=== PATIENT | male | born 1970 | race American Indian/Alaskan Native ===

== ENCOUNTER 2018-11-05 13:49 | Inpatient (IN) | payer OTHER ==
--- NOTE | 2018-11-05 14:46 | ED PDOC ---
Arrival/HPI - General Chief Complaint: GI Problem Time Seen by Provider: 11/05/18 14:05 Historian: Patient - History of Present Illness Narrative History of Present Illness (Text): 11/05/18 14:43 48 M with PMh of acid reflux and hypertension presents with cc chest pain (nagging, local) w/ lightheadedness since yesterday. Patient denies chest pain radiating to back. Patient reports having a history of acid reflux and mentions the chest pain he's had from acid reflux feels different from the chest pain he is currently feeling. Patient denies any fevers, chills, headache, dizziness, shortness of breath, dyspnea on exertion, cough, diaphoresis, abdominal pain, nausea, vomiting, diarrhea, back pain, or any other complaint. Primary Care Provider: Dr. Joe Time/Duration: 24 hours Symptom Onset: Sudden Symptom Course: Unchanged Activities at Onset: Light Context: Home Past Medical History - Provider Review Nursing Documentation Reviewed: Yes - Infectious Disease Hx of Infectious Diseases: None - Cardiac Hx Cardiac Disorders: No - Pulmonary Hx Respiratory Disorders: No - Neurological Hx Neurological Disorder: No - HEENT Hx HEENT Disorder: No - Renal Hx Renal Disorder: No - Endocrine/Metabolic Hx Diabetes Mellitus Type 2: Yes - Hematological/Oncological Hx Blood Disorders: No - Integumentary Hx Dermatological Disorder: No - Musculoskeletal/Rheumatological Hx Musculoskeletal Disorders: No Hx Falls: No - Gastrointestinal Hx Gastrointestinal Disorders: No - Genitourinary/Gynecological Hx Genitourinary Disorders: No - Psychiatric Hx Psychophysiologic Disorder: No Hx Substance Use: No - Surgical History Other/Comment: left partial knee replacement, 2008 - Anesthesia Hx Anesthesia: No Hx Anesthesia Reactions: No - Suicidal Assessment Feels Threatened In Home Enviroment: No Family/Social History - Physician Review Nursing Documentation Reviewed: Yes Family/Social History: Unknown Family HX Smoking Status: Never Smoked Hx Alcohol Use: No Hx Substance Use: No Hx Substance Use Treatment: No Allergies/Home Meds Allergies/Adverse Reactions: Allergies No Known Allergies Allergy (Verified 09/06/15 15:14) Home Medications: Home Meds Medication Instructions Recorded Confirmed Losartan [Cozaar] 100 mg PO DAILY 11/05/18 11/05/18 MetFORMIN [glucOPHAGE] 500 mg PO BID 11/05/18 11/05/18 amLODIPine [Norvasc] 10 mg PO DAILY 11/05/18 11/05/18 Review of Systems - Physician Review All systems were reviewed & negative as marked: Yes - Review of Systems Constitutional: Normal Eyes: Normal ENT: Normal Respiratory: Normal. absent: SOB Cardiovascular: Chest Pain Gastrointestinal: Normal Genitourinary Male: Normal Musculoskeletal: Normal Skin: Normal Neurological: Other (light headness) Endocrine: Normal Hemo/Lymphatic: Normal Psychiatric: Normal Physical Exam - Physical Exam Narrative Physical Exam (Text): 11/05/18 14:45 Gen: VS reviewed, alert, well developed, well nourished, nontoxic, mild distress Eye: EOMI, PERRL ENT: normal pharynx. Neck: no JVD, supple, no adenopathy CV: Irregularly irregular heart rate, no rubs,no murmur, S1, S2 Pulm: no distress, clear to auscultation, no wheeze, no rhonchi, breath sounds equal, no rales Abd: soft, nontender, no guarding, no rebound, no rigidity Ext: no edema Skin: good color, no rash, no cyanosis Psych: responds appropriately to questions, normal affect Neuro: oriented x3, CN2-12 intact grossly, motor intact, sensation intact Vital Signs Temp Pulse Resp BP Pulse Ox 11/05/18 14:02 98.5 F 66 18 143/80 98 Medical Decision Making ED Course and Treatment: 11/05/18 14:46 Impression: 48 M presents with cc chest pain (nagging, local) w/ lightheadedness since yesterday Plan: -- Labs -- Chlamydia/ GC -- Reassess and disposition Prior Visits: Notes and results from previous visits were reviewed. Progress Notes: 11/05/18 14:[address] scott. recommends beta blockade assuming no acute electrolyte or acs disturbance. 11/05/18 15:[address] wynne to the hospitalist service,would like tele observation status. patient to be admitted for frequent pvc's, rule out acs, consult cardiology. 11/05/18 15:55 11/05/18 17:12 patient noted on monitor to have frequent runs on nonsustained vtach, the complexes are wide, they do not appear supraventricular. despite discussing the case twice with dr. scott regarding my concern i feel it is prudent to initiate antiarrythmic therapy 11/05/18 17:32 dr. scott, cardiology, is in the ED for evaluation 11/05/18 17:40 d/w dr. scott, agrees with amiodarone and icu admit, he will discuss directly with dr. [place] manager [facility] regarding disposition 11/05/18 17:57 after period of observation in the ED, the patient's heart rate has normalized and no episode of NSVT seen, as per dr. scott no amiodarone for now and admit to tele. - Critical Care Critical Care Minutes: 30 minutes (critical care for potential critical illness, coordination of care) - RAD Interpretation Narrative RAD Interpretations (Text): 11/05/18 18:12 Chest X Ray -- No active pulmonary disease It Infrastructure Engineer: Radiologist - EKG Interpretation EKG Interpretation (Text): 11/05/18 14:20 ekg my read: sinus thythm with frequent runs of pvc' Interpreted by ED Physician: Yes - Scribe Statement The provider has reviewed the documentation as recorded by the Autumn Church All medical record entries made by the Scribmarcy were at my direction and personally dictated by me. I have reviewed the chart and agree that the record accurately reflects my personal performance of the history, physical exam, medical decision making, and the department course for this patient. I have also personally directed, reviewed, and agree with the discharge instructions and disposition. Disposition/Present on Arrival - Present on Arrival Any Indicators Present on Arrival: No History of DVT/PE: No History of Uncontrolled Diabetes: No Urinary Catheter: No History of Decub. Ulcer: No History Surgical Site Infection Following: None - Disposition Have Diagnosis and Disposition been Completed?: Yes Diagnosis: PVC (premature ventricular contraction) Disposition: HOSPITALIZED Disposition Time: 15:54 Patient Plan: Observation Patient Problems: Current Active Problems Problem Status Onset PVC (premature ventricular contraction) Acute Condition: GUARDED
[2018-11-05 14:51] LABS: INR 1.23; PARTIAL THROMBOPLASTIN TIME 44.8 Seconds (26.9-38.3); PROTHROMBIN TIME 13.7 SECONDS (9.4-12.5)
[2018-11-05 14:52] LABS: ALB/GLOB RATIO 1.1 (1.1-1.8); ALBUMIN 4.2 g/dL (3.0-4.8); ALT/SGPT 18 U/L (7-56); AST/SGOT 22 U/L (17-59); BLOOD UREA NITROGEN 16 mg/dL (7-21); CALCIUM 9.8 mg/dL (8.4-10.5); GFR NON-AFRICAN AMERICAN > 60
[2018-11-05 14:53] LABS: BASO # 0.02 K/mm3 (0.0-2.0); BASO % 0.4 % (0.0-3.0); EOS # 0.2 (0.0-0.7); EOS % 2.9 % (1.5-5.0); HEMOGLOBIN 14.5 g/dL (14.0-18.0); LYMPH # 2.1 (1.2-3.4); LYMPH % 37.1 % (22.0-35.0); MEAN CELL VOLUME 86.5 fl (80.0-105.0); MEAN CORPUSCULAR HEMOGLOBIN 27.9 pg (25.0-35.0); MEAN CORPUSCULAR HGB CONC 32.3 g/dl (31.0-37.0); MEAN PLATELET VOLUME 9.9 fl (7.0-11.0); MONO # 0.6 (0.1-0.6); MONO % 11.4 % (1.0-6.0); RBC 5.19 10^6/uL (3.5-6.1); RED CELL DISTRIBUTION WIDTH 13.6 % (11.5-14.5); WHITE BLOOD COUNT 5.5 10^3/uL (4.5-11.0)
[2018-11-05 15:03] LABS: TROPONIN I < 0.01 ng/mL
[2018-11-05] MEDS ORDERED: Amiodarone 150 mg/D5W 100 ml 150 MG/100 ML BAG IVPB ONE (17:05)
[2018-11-05] MEDS ORDERED: Amiodarone 360 mg/D5W 200 ml 360 MG/200 ML BAG IV SCH ×2 (17:15)
[2018-11-05 17:17] LABS: BARBITURATES, UR NEGATIVE (NEGATIVE); BENZODIAZEPINES, UR NEGATIVE (NEGATIVE); OPIATES, UR NEGATIVE (NEGATIVE); PHENCYCLIDINE, UR NEGATIVE (NEGATIVE)
--- NOTE | 2018-11-05 17:25 | CP.PCM.HP ---
<George Lee - Last Filed: 11/05/18 20:28> History of Present Illness - History of Present Illness History of Present Illness: 48M w/ PMH DM2, HTN, presenting w/ complaints of new onset palpitations. He denies any previous episodes, reported initial onset yesterday w/o associated chest pain, sob, light headedness. Palpitations have been on/off w/o no exacerbating factors, denies any worsening w/ exertion or dyspnea on exertion. At time of evaluation patient continues to complain of palpitations in ED No prior hx of cardiac issues; arrhythmias reported as per patient. 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 [employer] FamHx: Mother: DM - Father: Lupus - Present on Admission - Present on Admission Any Indicators Present on Admission: No Review of Systems - Review of Systems All systems: reviewed and no additional remarkable complaints except Review of Systems: as per HPI Past Patient History - Infectious Disease Hx of Infectious Diseases: None - Past Medical History & Family History Past Medical History?: Yes - Past Social History Smoking Status: Never Smoked - CARDIAC Hx Cardiac Disorders: No - PULMONARY Hx Respiratory Disorders: No - NEUROLOGICAL Hx Neurological Disorder: No - HEENT Hx HEENT Problems: No - RENAL Hx Chronic Kidney Disease: No - ENDOCRINE/METABOLIC Hx Diabetes Mellitus Type 2: Yes - HEMATOLOGICAL/ONCOLOGICAL Hx Blood Disorders: No - INTEGUMENTARY Hx Dermatological Problems: No - MUSCULOSKELETAL/RHEUMATOLOGICAL Hx Musculoskeletal Disorders: No Hx Falls: No - GASTROINTESTINAL Hx Gastrointestinal Disorders: No - GENITOURINARY/GYNECOLOGICAL Hx Genitourinary Disorders: No - PSYCHIATRIC Hx Psychophysiologic Disorder: No Hx Substance Use: No - SURGICAL HISTORY Other/Comment: left partial knee replacement, 2007 - ANESTHESIA Hx Anesthesia: No Hx Anesthesia Reactions: No Meds Allergies/Adverse Reactions: Allergies Allergy/AdvReac Type Severity Reaction Status Date / Time No Known Allergies Allergy Verified 09/06/15 15:14 Physical Exam - Constitutional Appears: Well, Non-toxic, No Acute Distress - Head Exam Head Exam: ATRAUMATIC, NORMOCEPHALIC - Eye Exam Eye Exam: EOMI, Normal appearance, PERRL. absent: Scleral icterus - Respiratory Exam Respiratory Exam: Clear to Auscultation Bilateral, NORMAL BREATHING PATTERN - Cardiovascular Exam Cardiovascular Exam: Irregular Rhythm. absent: Systolic Murmur - GI/Abdominal Exam GI & Abdominal Exam: Soft. absent: Tenderness - Extremities Exam Extremities exam: Positive for: pedal pulses present. Negative for: pedal edema - Back Exam Back exam: absent: CVA tenderness (L), CVA tenderness (R) - Neurological Exam Neurological exam: Alert, CN II-XII Intact, Oriented x3 - Psychiatric Exam Psychiatric exam: Normal Affect, Normal Mood - Skin Skin Exam: Rash (R hand ) Results - Vital Signs Recent Vital Signs: Last Vital Signs Temp 98.5 F 11/05/18 14:02 Pulse 116 H 11/05/18 16:30 Resp 18 11/05/18 14:02 BP 159/90 H 11/05/18 16:30 Pulse Ox 98 11/05/18 14:02 - Labs Result Diagrams: 11/05/18 14:25 11/05/18 14:25 Labs: Laboratory Results - last 24 hr 11/05/18 11/05/18 11/05/18 14:25 14:25 14:25 WBC 5.5 RBC 5.19 Hgb 14.5 Hct 44.9 MCV 86.5 MCH 27.9 MCHC 32.3 RDW 13.6 Plt Count 327 MPV 9.9 Neut % (Auto) 48.2 L Lymph % (Auto) 37.1 H [place] % (Auto) 11.4 H Eos % (Auto) 2.9 Baso % (Auto) 0.4 Lymph # (Auto) 2.1 [place] # (Auto) 0.6 Eos # (Auto) 0.2 Baso # (Auto) 0.02 Absolute Neuts (auto) 2.67 PT 13.7 H INR 1.23 APTT 44.8 H Sodium 141 Potassium 3.9 Chloride 101 Carbon Dioxide 30 Anion Gap 14 BUN 16 Creatinine 0.8 Est GFR ( Amer) > 60 Est GFR (Non-Af Amer) > 60 Random Glucose 149 H Calcium 9.8 Magnesium 1.8 Total Bilirubin 0.4 AST 22 ALT 18 Alkaline Phosphatase 68 Troponin I < 0.01 Total Protein 8.1 Albumin 4.2 Globulin 3.9 Albumin/Globulin Ratio 1.1 TSH 3rd Generation Urine Opiates Screen Urine Methadone Screen Ur Barbiturates Screen Ur Phencyclidine Scrn Ur Amphetamines Screen U Benzodiazepines Scrn U Oth Cocaine Metabols U Cannabinoids Screen 11/05/18 11/05/18 14:25 16:33 WBC RBC Hgb Hct MCV MCH MCHC RDW Plt Count MPV Neut % (Auto) Lymph % (Auto) [place] % (Auto) Eos % (Auto) Baso % (Auto) Lymph # (Auto) [place] # (Auto) Eos # (Auto) Baso # (Auto) Absolute Neuts (auto) PT INR APTT Sodium Potassium Chloride Carbon Dioxide Anion Gap BUN Creatinine Est GFR ( Amer) Est GFR (Non-Af Amer) Random Glucose Calcium Magnesium Total Bilirubin AST ALT Alkaline Phosphatase Troponin I Total Protein Albumin Globulin Albumin/Globulin Ratio TSH 3rd Generation 3.81 Urine Opiates Screen Negative Urine Methadone Screen Negative Ur Barbiturates Screen Negative Ur Phencyclidine Scrn Negative Ur Amphetamines Screen Negative U Benzodiazepines Scrn Negative U Oth Cocaine Metabols Negative U Cannabinoids Screen Negative Assessment & Plan - Assessment and Plan (Free Text) Assessment: 48M PMH HTN, DM presented to [facility] ED on 11/05 w/ complaints of palpitations; noted to have irregular rhythm on EKG. Admitted for management and treatment of symptomatic arrhythmia; as well as acute coronary syndrome rule out Plan: ACS r/o: Initial EKG noted to be NSR w/ frequent and consecutive PVC and fusion complexes; t wave abnormalities; No overt ST segment elevation Initial Troponin negative Repeat troponin in AM Lipid panel wnl CXR no acute cardio/pulmonary process A1C Loaded ASA 324mg in ED Start Lipitor 40mg Daily Start ASA 81 QDaily Cardiology following, appreciate reccs Symptomatic Arrhythmia: Afib w/ abberant conduction as per cardiology Lovenox 120mg Q12 Maintain Mag >2 // Maintain K+ >4 Given 2gm Magsulfate; Given 40meq K+ ECHO pending NPO past midnight for stress test tomorrow Given Lopressor 50 in the ED Metoprolol [Lopressor] 5 mg IVP Q4H PRN - HR >120 Metoprolol Tartrate [Lopressor] 50 mg PO 0800,1800 TSH within normal limits Cardiology Consult Stat - Singh Hx DM: ISS - Low - ACHS POC Fingerstick ACHS DVT PPX: Lovenox as above Patient was seen, examined, and discussed w/ attending Physician Dr. Moura - Date & Time Date: 11/05/18 Time: 17:33 Decision To Admit - Pt Status Changed To: Hospital Disposition Of: Inpatient Admission - Admit Certification Admit to Inpatient:: After my assessment, the patient will require hospitalization for at least two midnights. This is because of the severity of symptoms shown, intensity of services needed, and/or the medical risk in this patient being treated as an outpatient. - . Bed Request Type: Telemetry Admitting Physician: Ajith Moura <Ajith Moura - Last Filed: 11/06/18 14:16> Results - Vital Signs Recent Vital Signs: Last Vital Signs Temp 98.5 F 11/05/18 21:39 Pulse 78 11/06/18 13:56 Resp 24 11/06/18 11:00 BP 117/83 11/06/18 13:56 Pulse Ox 94 L 11/06/18 11:00 - Labs Result Diagrams: 11/06/18 05:30 11/06/18 05:30 Labs: Laboratory Results - last 24 hr 11/05/18 11/05/18 11/05/18 14:25 14:25 14:25 WBC 5.5 RBC 5.19 Hgb 14.5 Hct 44.9 MCV 86.5 MCH 27.9 MCHC 32.3 RDW 13.6 Plt Count 327 MPV 9.9 Neut % (Auto) 48.2 L Lymph % (Auto) 37.1 H [place] % (Auto) 11.4 H Eos % (Auto) 2.9 Baso % (Auto) 0.4 Lymph # (Auto) 2.1 [place] # (Auto) 0.6 Eos # (Auto) 0.2 Baso # (Auto) 0.02 Absolute Neuts (auto) 2.67 PT 13.7 H INR 1.23 APTT 44.8 H Sodium 141 Potassium 3.9 Chloride 101 Carbon Dioxide 30 Anion Gap 14 BUN 16 Creatinine 0.8 Est GFR ( Amer) > 60 Est GFR (Non-Af Amer) > 60 POC Glucose (mg/dL) Random Glucose 149 H Hemoglobin A1c Calcium 9.8 Magnesium 1.8 Total Bilirubin 0.4 AST 22 ALT 18 Alkaline Phosphatase 68 Lactate Dehydrogenase Total Creatine Kinase Troponin I < 0.01 Total Protein 8.1 Albumin 4.2 Globulin 3.9 Albumin/Globulin Ratio 1.1 Triglycerides Cholesterol LDL Cholesterol Direct HDL Cholesterol Free T4 TSH 3rd Generation Urine Opiates Screen Urine Methadone Screen Ur Barbiturates Screen Ur Phencyclidine Scrn Ur Amphetamines Screen U Benzodiazepines Scrn U Oth Cocaine Metabols U Cannabinoids Screen 11/05/18 11/05/18 11/05/18 14:25 14:30 14:45 WBC RBC Hgb Hct MCV MCH MCHC RDW Plt Count MPV Neut % (Auto) Lymph % (Auto) [place] % (Auto) Eos % (Auto) Baso % (Auto) Lymph # (Auto) [place] # (Auto) Eos # (Auto) Baso # (Auto) Absolute Neuts (auto) PT INR APTT Sodium Potassium Chloride Carbon Dioxide Anion Gap BUN Creatinine Est GFR ( Amer) Est GFR (Non-Af Amer) POC Glucose (mg/dL) Random Glucose Hemoglobin A1c Calcium Magnesium Total Bilirubin AST ALT Alkaline Phosphatase Lactate Dehydrogenase Total Creatine Kinase Troponin I Total Protein Albumin Globulin Albumin/Globulin Ratio Triglycerides 50 Cholesterol 143 LDL Cholesterol Direct 108 HDL Cholesterol 21 L Free T4 1.00 TSH 3rd Generation 3.81 Urine Opiates Screen Urine Methadone Screen Ur Barbiturates Screen Ur Phencyclidine Scrn Ur Amphetamines Screen U Benzodiazepines Scrn U Oth Cocaine Metabols U Cannabinoids Screen 11/05/18 11/05/18 11/05/18 16:33 21:00 23:02 WBC RBC Hgb Hct MCV MCH MCHC RDW Plt Count MPV Neut % (Auto) Lymph % (Auto) [place] % (Auto) Eos % (Auto) Baso % (Auto) Lymph # (Auto) [place] # (Auto) Eos # (Auto) Baso # (Auto) Absolute Neuts (auto) PT INR APTT Sodium Potassium Chloride Carbon Dioxide Anion Gap BUN Creatinine Est GFR ( Amer) Est GFR (Non-Af Amer) POC Glucose (mg/dL) 149 H Random Glucose Hemoglobin A1c Calcium Magnesium Total Bilirubin AST ALT Alkaline Phosphatase Lactate Dehydrogenase 294 L Total Creatine Kinase 178 Troponin I < 0.01 Total Protein Albumin Globulin Albumin/Globulin Ratio Triglycerides Cholesterol LDL Cholesterol Direct HDL Cholesterol Free T4 TSH 3rd Generation Urine Opiates Screen Negative Urine Methadone Screen Negative Ur Barbiturates Screen Negative Ur Phencyclidine Scrn Negative Ur Amphetamines Screen Negative U Benzodiazepines Scrn Negative U Oth Cocaine Metabols Negative U Cannabinoids Screen Negative 11/06/18 11/06/18 11/06/18 05:30 05:30 05:30 WBC 6.6 RBC 5.35 Hgb 15.0 Hct 46.3 MCV 86.5 MCH 28.0 MCHC 32.4 RDW 13.8 Plt Count 346 MPV 10.1 Neut % (Auto) 50.1 Lymph % (Auto) 35.9 H [place] % (Auto) 11.1 H Eos % (Auto) 2.6 Baso % (Auto) 0.3 Lymph # (Auto) 2.4 [place] # (Auto) 0.7 H Eos # (Auto) 0.2 Baso # (Auto) 0.02 Absolute Neuts (auto) 3.30 PT INR APTT Sodium 139 Potassium 4.0 Chloride 100 Carbon Dioxide 29 Anion Gap 14 BUN 16 Creatinine 0.9 Est GFR ( Amer) > 60 Est GFR (Non-Af Amer) > 60 POC Glucose (mg/dL) Random Glucose 165 H Hemoglobin A1c 9.5 H D Calcium 9.5 Magnesium 2.1 Total Bilirubin AST ALT Alkaline Phosphatase Lactate Dehydrogenase 375 Total Creatine Kinase 149 Troponin I < 0.01 Total Protein Albumin Globulin Albumin/Globulin Ratio Triglycerides Cholesterol LDL Cholesterol Direct HDL Cholesterol Free T4 TSH 3rd Generation Urine Opiates Screen Urine Methadone Screen Ur Barbiturates Screen Ur Phencyclidine Scrn Ur Amphetamines Screen U Benzodiazepines Scrn U Oth Cocaine Metabols U Cannabinoids Screen 11/06/18 08:23 WBC RBC Hgb Hct MCV MCH MCHC RDW Plt Count MPV Neut % (Auto) Lymph % (Auto) [place] % (Auto) Eos % (Auto) Baso % (Auto) Lymph # (Auto) [place] # (Auto) Eos # (Auto) Baso # (Auto) Absolute Neuts (auto) PT INR APTT Sodium Potassium Chloride Carbon Dioxide Anion Gap BUN Creatinine Est GFR ( Amer) Est GFR (Non-Af Amer) POC Glucose (mg/dL) 157 H Random Glucose Hemoglobin A1c Calcium Magnesium Total Bilirubin AST ALT Alkaline Phosphatase Lactate Dehydrogenase Total Creatine Kinase Troponin I Total Protein Albumin Globulin Albumin/Globulin Ratio Triglycerides Cholesterol LDL Cholesterol Direct HDL Cholesterol Free T4 TSH 3rd Generation Urine Opiates Screen Urine Methadone Screen Ur Barbiturates Screen Ur Phencyclidine Scrn Ur Amphetamines Screen U Benzodiazepines Scrn U Oth Cocaine Metabols U Cannabinoids Screen Attending/Attestation - Attestation I have personally seen and examined this patient.: Yes I have fully participated in the care of the patient.: Yes I have reviewed all pertinent clinical information: Yes Notes (Text): 11/06/18 14:12 attending note; Patient seen and examined with resident in ER. Patient is alert and awake. Denies any chest pain, shortness of breath. Complaining of occasional palpitation. Denies any nausea, vomiting. Denies any abdominal pain, fevers, chills. Patient is a 48-year-old male with a past medical history of hypertension, diabetes, obesity is admitted with palpitations. 1. Palpitations; EKG shows frequent PVCs. Started on metoprolol. Monitor heart rate closely. Cardiology evaluation appreciated. Started on subcu Lovenox treatment dose for possible A. fib and aberrant conduction. Cardiac enzymes x3 ordered. Echocardiogram ordered. N.p.o. for stress test tomorrow. 2. Potassium and magnesium supplementation ordered. 3. Hypertension; continue metoprolol. Patient takes Narvasc and Cozaar at home. 4 diabetes; continue regular insulin sliding scale. Patient is on metformin at home. Monitor closely. We will follow-up with cardiology. 11/06/18 14:16
[2018-11-05] MEDS ORDERED: Potassium Chloride 20 mEq ER Tab PO STA (17:30)
[2018-11-05] MEDS ORDERED: Magnesium Sulfate 2 gm/50 ml 2 GM/50 ML BAG IVPB ONE (17:30)
--- NOTE | 2018-11-05 17:34 | CARD ---
APPROVED REPORT Date of service: 11/05/2018 EKG Measurement Heart [id number] <Conclusion> NSR with frequent and consecutive premature ventricular complexes and fusion complexes T wave abnormalities CCR Abnormal ECG
--- NOTE | 2018-11-05 17:36 | RAD ---
Date of service: 11/05/2018 HISTORY: chest pain COMPARISON: No prior. FINDINGS: LUNGS: The lungs are well inflated and clear. PLEURA: No pleural effusions or pneumothorax. CARDIOVASCULAR: The heart is normal in size. No aortic atherosclerotic calcifications present. OSSEOUS STRUCTURES: Within normal limits for the patient's age. VISUALIZED UPPER ABDOMEN: Normal. OTHER FINDINGS: None. IMPRESSION: No active pulmonary disease.
[2018-11-05] MEDS ORDERED: Metoprolol 1 mg/ml Inj IVP PRN (17:46)
[2018-11-05 18:20] LABS: HDL CHOLESTEROL 21 mg/dL (29-60)
[2018-11-05 18:31] LABS: LDL CHOLESTEROL 108 mg/dL (0-129)
[2018-11-05] MEDS: Enoxaparin 120 mg Syringe SC SCH (19:51)
--- NOTE | 2018-11-05 20:18 | CP.PCM.CON ---
<Judson Smith - Last Filed: 11/05/18 20:20> History of Present Illness - History of Present Illness History of Present Illness: Dr Smith CCU Consult 48M w/ PMH DM2, HTN, presenting w/ complaints of new onset palpitations. He denies any previous episodes, reported initial onset yesterday w/o associated chest pain, sob, light headedness. Palpitations have been on/off w/o no exacerbating factors, denies any worsening w/ exertion or dyspnea on exertion. At time of evaluation patient says palpitations have decreased in severity, feels less anxious and feels more stable. 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 [employer] FamHx: Mother: DM - Father: Lupus - Review of Systems - Review of Systems All systems: reviewed and no additional remarkable complaints except (as per HPI) Past Patient History - Infectious Disease Hx of Infectious Diseases: None - Past Medical History & Family History Past Medical History?: Yes - Past Social History Smoking Status: Never Smoked - CARDIAC Hx Cardiac Disorders: No - PULMONARY Hx Respiratory Disorders: No - NEUROLOGICAL Hx Neurological Disorder: No - HEENT Hx HEENT Problems: No - RENAL Hx Chronic Kidney Disease: No - ENDOCRINE/METABOLIC Hx Diabetes Mellitus Type 2: Yes - HEMATOLOGICAL/ONCOLOGICAL Hx Blood Disorders: No - INTEGUMENTARY Hx Dermatological Problems: No - MUSCULOSKELETAL/RHEUMATOLOGICAL Hx Musculoskeletal Disorders: No Hx Falls: No - GASTROINTESTINAL Hx Gastrointestinal Disorders: No - GENITOURINARY/GYNECOLOGICAL Hx Genitourinary Disorders: No - PSYCHIATRIC Hx Psychophysiologic Disorder: No Hx Substance Use: No - SURGICAL HISTORY Other/Comment: left partial knee replacement, 2007 - ANESTHESIA Hx Anesthesia: No Hx Anesthesia Reactions: No Meds Allergies/Adverse Reactions: Allergies Allergy/AdvReac Type Severity Reaction Status Date / Time No Known Allergies Allergy Verified 09/06/15 15:14 - Medications Medications: Current Medications Aspirin (Ecotrin) 81 mg PO DAILY [facility] Atorvastatin Calcium (Lipitor) 40 mg PO DIN [facility] Enoxaparin Sodium (Lovenox) 120 mg SC Q12H [facility]; Protocol Last Admin: 11/05/18 19:51 Dose: 120 mg Metoprolol Tartrate (Lopressor) 50 mg PO 0800,1800 [facility] Last Admin: 11/05/18 18:22 Dose: Not Given Metoprolol Tartrate (Lopressor) 5 mg IVP Q4H PRN PRN Reason: Tachycardia Pantoprazole Sodium (Protonix Ec Tab) 40 mg PO DAILY [facility] Physical Exam - Constitutional Appears: Non-toxic, No Acute Distress - Head Exam Head Exam: ATRAUMATIC, NORMAL INSPECTION - Eye Exam Eye Exam: EOMI, Normal appearance, PERRL. absent: Scleral icterus - ENT Exam ENT Exam: Mucous Membranes Moist - Neck Exam Neck exam: Positive for: Normal Inspection - Respiratory Exam Respiratory Exam: Clear to Auscultation Bilateral. absent: Rales, Rhonchi, Wheezes - Cardiovascular Exam Cardiovascular Exam: Irregular Rhythm, +S1, +S2 - GI/Abdominal Exam GI & Abdominal Exam: Normal Bowel Sounds. absent: Firm, Guarding, Rigid, Tenderness - Extremities Exam Extremities exam: Positive for: normal inspection, pedal pulses present. Negative for: pedal edema - Neurological Exam Neurological exam: Alert, CN II-XII Intact, Oriented x3 - Psychiatric Exam Psychiatric exam: Normal Affect, Normal Mood - Skin Skin Exam: Diaphoretic, Normal Color Results - Vital Signs Recent Vital Signs: Last Vital Signs Temp 98.5 F 11/05/18 14:02 Pulse 69 11/05/18 18:44 Resp 18 11/05/18 18:44 BP 156/74 H 11/05/18 18:44 Pulse Ox 98 11/05/18 18:44 - Labs Result Diagrams: 11/05/18 14:25 11/05/18 14:25 Labs: Laboratory Results - last 24 hr 11/05/18 11/05/18 11/05/18 14:25 14:25 14:25 WBC 5.5 RBC 5.19 Hgb 14.5 Hct 44.9 MCV 86.5 MCH 27.9 MCHC 32.3 RDW 13.6 Plt Count 327 MPV 9.9 Neut % (Auto) 48.2 L Lymph % (Auto) 37.1 H [place] % (Auto) 11.4 H Eos % (Auto) 2.9 Baso % (Auto) 0.4 Lymph # (Auto) 2.1 [place] # (Auto) 0.6 Eos # (Auto) 0.2 Baso # (Auto) 0.02 Absolute Neuts (auto) 2.67 PT 13.7 H INR 1.23 APTT 44.8 H Sodium 141 Potassium 3.9 Chloride 101 Carbon Dioxide 30 Anion Gap 14 BUN 16 Creatinine 0.8 Est GFR ( Amer) > 60 Est GFR (Non-Af Amer) > 60 Random Glucose 149 H Calcium 9.8 Magnesium 1.8 Total Bilirubin 0.4 AST 22 ALT 18 Alkaline Phosphatase 68 Troponin I < 0.01 Total Protein 8.1 Albumin 4.2 Globulin 3.9 Albumin/Globulin Ratio 1.1 Triglycerides Cholesterol LDL Cholesterol Direct HDL Cholesterol TSH 3rd Generation Urine Opiates Screen Urine Methadone Screen Ur Barbiturates Screen Ur Phencyclidine Scrn Ur Amphetamines Screen U Benzodiazepines Scrn U Oth Cocaine Metabols U Cannabinoids Screen 11/05/18 11/05/18 11/05/18 14:25 14:30 16:33 WBC RBC Hgb Hct MCV MCH MCHC RDW Plt Count MPV Neut % (Auto) Lymph % (Auto) [place] % (Auto) Eos % (Auto) Baso % (Auto) Lymph # (Auto) [place] # (Auto) Eos # (Auto) Baso # (Auto) Absolute Neuts (auto) PT INR APTT Sodium Potassium Chloride Carbon Dioxide Anion Gap BUN Creatinine Est GFR ( Amer) Est GFR (Non-Af Amer) Random Glucose Calcium Magnesium Total Bilirubin AST ALT Alkaline Phosphatase Troponin I Total Protein Albumin Globulin Albumin/Globulin Ratio Triglycerides 50 Cholesterol 143 LDL Cholesterol Direct 108 HDL Cholesterol 21 L TSH 3rd Generation 3.81 Urine Opiates Screen Negative Urine Methadone Screen Negative Ur Barbiturates Screen Negative Ur Phencyclidine Scrn Negative Ur Amphetamines Screen Negative U Benzodiazepines Scrn Negative U Oth Cocaine Metabols Negative U Cannabinoids Screen Negative Assessment & Plan - Assessment and Plan (Free Text) Assessment: 48M found to have irregular tachycardia on EKG admitted for chest pain and palpitations Plan: #Chest Pain w/ Palpitations -irregular EKG: bigeminy w/ irregular P waves, indiscriminate -Pt responded to Lopressor, rate now in 80s, still irregular on monitor -continue with Toprol XL50 BID and Lopressor 5IVP q4 prn -c/w lovenox -admit to tele, not a candidate for CCU admission dispo: c/w current medical therapy, please notfiy temperature regulator if condition wors ens CK PGY1 <Mulugeta Larsen - Last Filed: 11/06/18 19:18> Meds - Medications Medications: Current Medications Amiodarone HCl (Cordarone) 400 mg PO BID [facility] Stop: 11/08/18 18:01 Last Admin: 11/06/18 18:35 Dose: 400 mg Amiodarone HCl (Cordarone) 200 mg PO BID [facility] Aspirin (Ecotrin) 81 mg PO DAILY [facility] Last Admin: 11/06/18 09:53 Dose: 81 mg Atorvastatin Calcium (Lipitor) 40 mg PO DIN [facility] Last Admin: 11/06/18 18:43 Dose: Not Given Enoxaparin Sodium (Lovenox) 120 mg SC Q12H [facility]; Protocol Last Admin: 11/06/18 18:34 Dose: 120 mg Insulin Human Regular (Humulin R Low) 0 units SC ACHS [facility]; Protocol Last Admin: 11/06/18 18:35 Dose: 1 unit Metoprolol Tartrate (Lopressor) 5 mg IVP Q4H PRN PRN Reason: Tachycardia Metoprolol Tartrate (Lopressor) 25 mg PO BID [facility] Last Admin: 11/06/18 18:35 Dose: 25 mg Pantoprazole Sodium (Protonix Ec Tab) 40 mg PO DAILY [facility] Last Admin: 11/06/18 09:53 Dose: 40 mg Results - Vital Signs Recent Vital Signs: Last Vital Signs Temp 97.3 F L 11/06/18 17:14 Pulse 75 11/06/18 18:35 Resp 20 11/06/18 17:14 BP 127/85 11/06/18 18:35 Pulse Ox 94 L 11/06/18 14:00 - Labs Result Diagrams: 11/06/18 05:30 11/06/18 05:30 Labs: Laboratory Results - last 24 hr 11/05/18 11/05/18 11/05/18 14:45 21:00 23:02 WBC RBC Hgb Hct MCV MCH MCHC RDW Plt Count MPV Neut % (Auto) Lymph % (Auto) [place] % (Auto) Eos % (Auto) Baso % (Auto) Lymph # (Auto) [place] # (Auto) Eos # (Auto) Baso # (Auto) Absolute Neuts (auto) Sodium Potassium Chloride Carbon Dioxide Anion Gap BUN Creatinine Est GFR ( Amer) Est GFR (Non-Af Amer) POC Glucose (mg/dL) 149 H Random Glucose Hemoglobin A1c Calcium Magnesium Lactate Dehydrogenase 294 L Total Creatine Kinase 178 Troponin I < 0.01 Free T4 1.00 11/06/18 11/06/18 11/06/18 05:30 05:30 05:30 WBC 6.6 RBC 5.35 Hgb 15.0 Hct 46.3 MCV 86.5 MCH 28.0 MCHC 32.4 RDW 13.8 Plt Count 346 MPV 10.1 Neut % (Auto) 50.1 Lymph % (Auto) 35.9 H [place] % (Auto) 11.1 H Eos % (Auto) 2.6 Baso % (Auto) 0.3 Lymph # (Auto) 2.4 [place] # (Auto) 0.7 H Eos # (Auto) 0.2 Baso # (Auto) 0.02 Absolute Neuts (auto) 3.30 Sodium 139 Potassium 4.0 Chloride 100 Carbon Dioxide 29 Anion Gap 14 BUN 16 Creatinine 0.9 Est GFR ( Amer) > 60 Est GFR (Non-Af Amer) > 60 POC Glucose (mg/dL) Random Glucose 165 H Hemoglobin A1c 9.5 H D Calcium 9.5 Magnesium 2.1 Lactate Dehydrogenase 375 Total Creatine Kinase 149 Troponin I < 0.01 Free T4 11/06/18 11/06/18 08:23 13:47 WBC RBC Hgb Hct MCV MCH MCHC RDW Plt Count MPV Neut % (Auto) Lymph % (Auto) [place] % (Auto) Eos % (Auto) Baso % (Auto) Lymph # (Auto) [place] # (Auto) Eos # (Auto) Baso # (Auto) Absolute Neuts (auto) Sodium Potassium Chloride Carbon Dioxide Anion Gap BUN Creatinine Est GFR ( Amer) Est GFR (Non-Af Amer) POC Glucose (mg/dL) 157 H 136 H Random Glucose Hemoglobin A1c Calcium Magnesium Lactate Dehydrogenase Total Creatine Kinase Troponin I Free T4 Attending/Attestation - Attestation I have personally seen and examined this patient.: Yes I have fully participated in the care of the patient.: Yes I have reviewed all pertinent clinical information: Yes Notes (Text): 11/06/18 19:17 Seen and examined. Discussed with residents. A&P as above. Check TSH/FT4.
--- NOTE | 2018-11-05 20:34 | CON ---
DATE: 11/05/2018 LOCATION: The patient in emergency room, bed 5. REASON FOR CONSULTATION: Palpitations, atrial fibrillation aberrantly conducted, hypertension, and diabetes mellitus. HISTORY OF PRESENT ILLNESS: The patient is a 48-year-old male who is known to have diabetes, hypertension, having funny feeling in chest since yesterday. He is feeling funny feeling in the chest, when I questioning about palpitations then he says yes that is what he is feeling the palpitations, sometimes he feels little dizzy, but denies any syncope. Denies any history of chest pain. Denies any shortness of breath. PAST MEDICAL HISTORY: Positive for partial knee surgery. PERSONAL HISTORY: No smoking. No drinking. No caffeine. FAMILY HISTORY: Not significant. HOME MEDICATIONS: The patient is on Norvasc 10 mg daily, metformin 500 mg b.i.d., and losartan 100 mg p.o. daily. REVIEW OF SYSTEMS: All the systems reviewed, positives mentioned in the history, others were negative. PHYSICAL EXAMINATION: VITAL SIGNS: Blood pressure 156/74, respirations 18, pulse 69, and temperature 98.5. HEENT: Head is normocephalic. Eyes; pupils normal. Conjunctivae normal. Nose and throat normal. NECK: JVP low. Carotid equal. THORAX: AP diameter normal. LUNGS: Clear. CARDIOVASCULAR: S1 and S2. ABDOMEN: Soft. No tenderness. No organomegaly. Bowel sounds normal. EXTREMITIES: No clubbing. No cyanosis. LABORATORY DATA: WBC 5.5, hemoglobin 14.5, hematocrit 44.9, and platelets 327. Sodium 141, potassium 3.9, BUN 16, and creatinine 0.8. AST and ALT normal. Troponin less than 0.01. Cholesterol 143, HDL is 21, TSH 3.81, and LDL 108. Chest x-ray, no active pulmonary disease. EKG showed sinus rhythm with aberrantly conducted beats and short runs of atrial fibrillation with aberrant conduction. DIAGNOSES: Palpitations, atrial fibrillation with aberrancy paroxysmal, hypertension, diabetes, hyperlipidemia, and obesity. PLAN: The patient already started on aspirin 81 mg daily. We will put Protonix 40 daily. We will give Lovenox b.i.d., atorvastatin 40 mg daily, and metoprolol stat 50 mg, then 50 mg p.o. b.i.d. The patient already received potassium and magnesium as well. We will order echocardiogram and I will also do nuclear stress test and we will follow closely. Logan Singh MD [facility]
[2018-11-05 21:38] LABS: TROPONIN I < 0.01 ng/mL
[2018-11-05] MEDS: Insulin Reg-LOW-Coverage SC SCH (22:00)
[2018-11-05] MEDS ORDERED: Pneumococcal 23-Valent Vaccine IM ONE (23:24)
[2018-11-05] MEDS ORDERED: Influenza Vaccine 60 mcg/0.5 mL SYR (4YR UP) IM ONE (23:24)
[2018-11-06 06:29] LABS: BASO # 0.02 K/mm3 (0.0-2.0); BASO % 0.3 % (0.0-3.0); EOS # 0.2 (0.0-0.7); EOS % 2.6 % (1.5-5.0); LYMPH # 2.4 (1.2-3.4); LYMPH % 35.9 % (22.0-35.0); MEAN CELL VOLUME 86.5 fl (80.0-105.0); MEAN CORPUSCULAR HGB CONC 32.4 g/dl (31.0-37.0); MEAN PLATELET VOLUME 10.1 fl (7.0-11.0); MONO # 0.7 (0.1-0.6); MONO % 11.1 % (1.0-6.0); RBC 5.35 10^6/uL (3.5-6.1); RED CELL DISTRIBUTION WIDTH 13.8 % (11.5-14.5); WHITE BLOOD COUNT 6.6 10^3/uL (4.5-11.0)
[2018-11-06 06:51] LABS: BLOOD UREA NITROGEN 16 mg/dL (7-21); CALCIUM 9.5 mg/dL (8.4-10.5); GFR NON-AFRICAN AMERICAN > 60
[2018-11-06 06:55] LABS: TROPONIN I < 0.01 ng/mL
[2018-11-06] MEDS: Enoxaparin 120 mg Syringe SC SCH ×2 (07:53→18:34)
[2018-11-06] MEDS ORDERED: Amiodarone 150 mg/D5W 100 ml 150 MG/100 ML BAG IVPB ONE (08:21)
[2018-11-06] MEDS: Insulin Reg-LOW-Coverage SC SCH ×4 (08:25→21:44)
[2018-11-06] MEDS: Pantoprazole 40 mg EC Tab PO SCH (09:53)
--- NOTE | 2018-11-06 10:05 | CP.CCUPN ---
<DonalDerekjatin Badillo - Last Filed: 11/06/18 10:55> CCU Subjective - Physician Review Events Since Last Encounter (Free Text): 11/06/18 10:01 no acute events overnight Subjective (Free Text): 11/06/18 10:03 Pt seen and examined, denies chest pain, SOB, nausea, or diaphoresis CCU Objective - Vital Signs / Intake & Output Vital Signs (Last 4 hours): Vital Signs Pulse BP 11/06/18 07:59 85 133/78 Intake and Output (Last 8hrs): Intake & Output 11/05/18 11/06/18 11/06/18 22:59 06:59 14:59 Output Total 800 Balance -800 Weight 16 lb 13 oz 258 lb 8 oz Output: Urine 800 Urine, Voided 800 Other: Voiding Method Urinal # Voids Urine, Voided 2 - Physical Exam Physical Exam Limitations: Negative for: Altered Mental Status Head: Positive for: Atraumatic, Normocephalic Pupils: Positive for: PERRL Extroacular Muscles: Positive for: EOMI Mouth: Positive for: Moist Mucous Membranes Respiratory/Chest: Positive for: Clear to Auscultation, Good Air Exchange. Negative for: Respiratory Distress, Accessory Muscle Use Cardiovascular: Positive for: Normal S1, S2, Irregular Rhythm, Other (ectopy) Abdomen: Positive for: Normal Bowel Sounds. Negative for: Tenderness, Distention Upper Extremity: Positive for: Normal Inspection. Negative for: Cyanosis, Edema Lower Extremity: Positive for: Normal Inspection Neurological: Positive for: GCS=15, CN II-XII Intact, Speech Normal Skin: Positive for: Warm, Dry, Rashes, Normal Color Psychiatric: Positive for: Alert, Oriented x 3 - Medications Active Medications: Active Medications Generic Name Dose Route Start Last Admin Trade Name Freq PRN Reason Stop Dose Admin Aspirin 81 mg 11/06/18 10:00 11/06/18 09:53 Ecotrin PO 81 mg DAILY YUSUF Administration Atorvastatin Calcium 40 mg 11/06/18 17:00 Lipitor PO DIN YUSUF Enoxaparin Sodium 120 mg 11/05/18 19:15 11/06/18 07:53 Lovenox SC 120 mg Q12H YUSUF Administration Protocol Insulin Human Regular 0 units 11/05/18 22:00 11/06/18 08:25 Humulin R Low SC Not Given ACHS [facility] Protocol Metoprolol Tartrate 50 mg 11/05/18 18:00 11/06/18 07:59 Lopressor PO 50 mg 0800,1800 YUSUF Administration Metoprolol Tartrate 5 mg 11/05/18 17:46 Lopressor IVP Q4H PRN Tachycardia Pantoprazole Sodium 40 mg 11/06/18 10:00 11/06/18 09:53 Protonix Ec Tab PO 40 mg DAILY YUSUF Administration - Patient Studies Lab Studies: Lab Studies 11/06/18 11/06/18 11/06/18 Range/Units 08:23 05:30 05:30 WBC 6.6 (4.5-11.0) 10^3/uL RBC 5.35 (3.5-6.1) 10^6/uL Hgb 15.0 (14.0-18.0) g/dL Hct 46.3 (42.0-52.0) % MCV 86.5 (80.0-105.0) fl MCH 28.0 (25.0-35.0) pg MCHC 32.4 (31.0-37.0) g/dl RDW 13.8 (11.5-14.5) % Plt Count 346 (120.0-450.0) 10^3/uL MPV 10.1 (7.0-11.0) fl Neut % (Auto) 50.1 (50.0-68.0) % Lymph % (Auto) 35.9 H (22.0-35.0) % [place] % (Auto) 11.1 H (1.0-6.0) % Eos % (Auto) 2.6 (1.5-5.0) % Baso % (Auto) 0.3 (0.0-3.0) % Lymph # (Auto) 2.4 (1.2-3.4) Cascade # (Auto) 0.7 H (0.1-0.6) Eos # (Auto) 0.2 (0.0-0.7) Baso # (Auto) 0.02 (0.0-2.0) K/mm3 Absolute Neuts (auto) 3.30 (1.4-6.5) PT (9.4-12.5) SECONDS INR APTT (26.9-38.3) Seconds Sodium 139 (132-148) mmol/L Potassium 4.0 (3.6-5.0) mmol/L Chloride 100 (98-107) mmol/L Carbon Dioxide 29 (21-33) mmol/L Anion Gap 14 (10-20) BUN 16 (7-21) mg/dL Creatinine 0.9 (0.8-1.5) mg/dl Est GFR ( Amer) > 60 Est GFR (Non-Af Amer) > 60 POC Glucose (mg/dL) 157 H (65-110) mg/dL Random Glucose 165 H (70-110) mg/dL Calcium 9.5 (8.4-10.5) mg/dL Magnesium 2.1 (1.7-2.2) mg/dL Total Bilirubin (0.2-1.3) mg/dL AST (17-59) U/L ALT (7-56) U/L Alkaline Phosphatase (38-126) U/L Lactate Dehydrogenase 375 (333-699) U/L Total Creatine Kinase 149 (35-230) U/L Troponin I < 0.01 ng/mL Total Protein (5.8-8.3) g/dL Albumin (3.0-4.8) g/dL Globulin gm/dL Albumin/Globulin Ratio (1.1-1.8) Triglycerides (35-160) mg/dL Cholesterol (130-200) mg/dL LDL Cholesterol Direct (0-129) mg/dL HDL Cholesterol (29-60) mg/dL Free T4 (0.78-2.19) ng/dL TSH 3rd Generation (0.46-4.68) mIU/mL Urine Opiates Screen (NEGATIVE) Urine Methadone Screen (NEGATIVE) Ur Barbiturates Screen (NEGATIVE) Ur Phencyclidine Scrn (NEGATIVE) Ur Amphetamines Screen (NEGATIVE) U Benzodiazepines Scrn (NEGATIVE) U Oth Cocaine Metabols (NEGATIVE) U Cannabinoids Screen (NEGATIVE) 11/05/18 11/05/18 11/05/18 Range/Units 23:02 21:00 16:33 WBC (4.5-11.0) 10^3/uL RBC (3.5-6.1) 10^6/uL Hgb (14.0-18.0) g/dL Hct (42.0-52.0) % MCV (80.0-105.0) fl MCH (25.0-35.0) pg MCHC (31.0-37.0) g/dl RDW (11.5-14.5) % Plt Count (120.0-450.0) 10^3/uL MPV (7.0-11.0) fl Neut % (Auto) (50.0-68.0) % Lymph % (Auto) (22.0-35.0) % Cascade % (Auto) (1.0-6.0) % Eos % (Auto) (1.5-5.0) % Baso % (Auto) (0.0-3.0) % Lymph # (Auto) (1.2-3.4) C[place] # (Auto) (0.1-0.6) Eos # (Auto) (0.0-0.7) Baso # (Auto) (0.0-2.0) K/mm3 Absolute Neuts (auto) (1.4-6.5) PT (9.4-12.5) SECONDS INR APTT (26.9-38.3) Seconds Sodium (132-148) mmol/L Potassium (3.6-5.0) mmol/L Chloride (98-107) mmol/L Carbon Dioxide (21-33) mmol/L Anion Gap (10-20) BUN (7-21) mg/dL Creatinine (0.8-1.5) mg/dl Est GFR ( Amer) Est GFR (Non-Af Amer) POC Glucose (mg/dL) 149 H (65-110) mg/dL Random Glucose (70-110) mg/dL Calcium (8.4-10.5) mg/dL Magnesium (1.7-2.2) mg/dL Total Bilirubin (0.2-1.3) mg/dL AST (17-59) U/L ALT (7-56) U/L Alkaline Phosphatase (38-126) U/L Lactate Dehydrogenase 294 L (333-699) U/L Total Creatine Kinase 178 (35-230) U/L Troponin I < 0.01 ng/mL Total Protein (5.8-8.3) g/dL Albumin (3.0-4.8) g/dL Globulin gm/dL Albumin/Globulin Ratio (1.1-1.8) Triglycerides (35-160) mg/dL Cholesterol (130-200) mg/dL LDL Cholesterol Direct (0-129) mg/dL HDL Cholesterol (29-60) mg/dL Free T4 (0.78-2.19) ng/dL TSH 3rd Generation (0.46-4.68) mIU/mL Urine Opiates Screen Negative (NEGATIVE) Urine Methadone Screen Negative (NEGATIVE) Ur Barbiturates Screen Negative (NEGATIVE) Ur Phencyclidine Scrn Negative (NEGATIVE) Ur Amphetamines Screen Negative (NEGATIVE) U Benzodiazepines Scrn Negative (NEGATIVE) U Oth Cocaine Metabols Negative (NEGATIVE) U Cannabinoids Screen Negative (NEGATIVE) 11/05/18 11/05/18 11/05/18 Range/Units 14:45 14:30 14:25 WBC (4.5-11.0) 10^3/uL RBC (3.5-6.1) 10^6/uL Hgb (14.0-18.0) g/dL Hct (42.0-52.0) % MCV (80.0-105.0) fl MCH (25.0-35.0) pg MCHC (31.0-37.0) g/dl RDW (11.5-14.5) % Plt Count (120.0-450.0) 10^3/uL MPV (7.0-11.0) fl Neut % (Auto) (50.0-68.0) % Lymph % (Auto) (22.0-35.0) % Cascade % (Auto) (1.0-6.0) % Eos % (Auto) (1.5-5.0) % Baso % (Auto) (0.0-3.0) % Lymph # (Auto) (1.2-3.4) C[place] # (Auto) (0.1-0.6) Eos # (Auto) (0.0-0.7) Baso # (Auto) (0.0-2.0) K/mm3 Absolute Neuts (auto) (1.4-6.5) PT (9.4-12.5) SECONDS INR APTT (26.9-38.3) Seconds Sodium (132-148) mmol/L Potassium (3.6-5.0) mmol/L Chloride (98-107) mmol/L Carbon Dioxide (21-33) mmol/L Anion Gap (10-20) BUN (7-21) mg/dL Creatinine (0.8-1.5) mg/dl Est GFR ( Amer) Est GFR (Non-Af Amer) POC Glucose (mg/dL) (65-110) mg/dL Random Glucose (70-110) mg/dL Calcium (8.4-10.5) mg/dL Magnesium (1.7-2.2) mg/dL Total Bilirubin (0.2-1.3) mg/dL AST (17-59) U/L ALT (7-56) U/L Alkaline Phosphatase (38-126) U/L Lactate Dehydrogenase (333-699) U/L Total Creatine Kinase (35-230) U/L Troponin I ng/mL Total Protein (5.8-8.3) g/dL Albumin (3.0-4.8) g/dL Globulin gm/dL Albumin/Globulin Ratio (1.1-1.8) Triglycerides 50 (35-160) mg/dL Cholesterol 143 (130-200) mg/dL LDL Cholesterol Direct 108 (0-129) mg/dL HDL Cholesterol 21 L (29-60) mg/dL Free T4 1.00 (0.78-2.19) ng/dL TSH 3rd Generation 3.81 (0.46-4.68) mIU/mL Urine Opiates Screen (NEGATIVE) Urine Methadone Screen (NEGATIVE) Ur Barbiturates Screen (NEGATIVE) Ur Phencyclidine Scrn (NEGATIVE) Ur Amphetamines Screen (NEGATIVE) U Benzodiazepines Scrn (NEGATIVE) U Oth Cocaine Metabols (NEGATIVE) U Cannabinoids Screen (NEGATIVE) 11/05/18 11/05/18 11/05/18 Range/Units 14:25 14:25 14:25 WBC 5.5 (4.5-11.0) 10^3/uL RBC 5.19 (3.5-6.1) 10^6/uL Hgb 14.5 (14.0-18.0) g/dL Hct 44.9 (42.0-52.0) % MCV 86.5 (80.0-105.0) fl MCH 27.9 (25.0-35.0) pg MCHC 32.3 (31.0-37.0) g/dl RDW 13.6 (11.5-14.5) % Plt Count 327 (120.0-450.0) 10^3/uL MPV 9.9 (7.0-11.0) fl Neut % (Auto) 48.2 L (50.0-68.0) % Lymph % (Auto) 37.1 H (22.0-35.0) % Cascade % (Auto) 11.4 H (1.0-6.0) % Eos % (Auto) 2.9 (1.5-5.0) % Baso % (Auto) 0.4 (0.0-3.0) % Lymph # (Auto) 2.1 (1.2-3.4) Cascade # (Auto) 0.6 (0.1-0.6) Eos # (Auto) 0.2 (0.0-0.7) Baso # (Auto) 0.02 (0.0-2.0) K/mm3 Absolute Neuts (auto) 2.67 (1.4-6.5) PT 13.7 H (9.4-12.5) SECONDS INR 1.23 APTT 44.8 H (26.9-38.3) Seconds Sodium 141 (132-148) mmol/L Potassium 3.9 (3.6-5.0) mmol/L Chloride 101 (98-107) mmol/L Carbon Dioxide 30 (21-33) mmol/L Anion Gap 14 (10-20) BUN 16 (7-21) mg/dL Creatinine 0.8 (0.8-1.5) mg/dl Est GFR ( Amer) > 60 Est GFR (Non-Af Amer) > 60 POC Glucose (mg/dL) (65-110) mg/dL Random Glucose 149 H (70-110) mg/dL Calcium 9.8 (8.4-10.5) mg/dL Magnesium 1.8 (1.7-2.2) mg/dL Total Bilirubin 0.4 (0.2-1.3) mg/dL AST 22 (17-59) U/L ALT 18 (7-56) U/L Alkaline Phosphatase 68 (38-126) U/L Lactate Dehydrogenase (333-699) U/L Total Creatine Kinase (35-230) U/L Troponin I < 0.01 ng/mL Total Protein 8.1 (5.8-8.3) g/dL Albumin 4.2 (3.0-4.8) g/dL Globulin 3.9 gm/dL Albumin/Globulin Ratio 1.1 (1.1-1.8) Triglycerides (35-160) mg/dL Cholesterol (130-200) mg/dL LDL Cholesterol Direct (0-129) mg/dL HDL Cholesterol (29-60) mg/dL Free T4 (0.78-2.19) ng/dL TSH 3rd Generation (0.46-4.68) mIU/mL Urine Opiates Screen (NEGATIVE) Urine Methadone Screen (NEGATIVE) Ur Barbiturates Screen (NEGATIVE) Ur Phencyclidine Scrn (NEGATIVE) Ur Amphetamines Screen (NEGATIVE) U Benzodiazepines Scrn (NEGATIVE) U Oth Cocaine Metabols (NEGATIVE) U Cannabinoids Screen (NEGATIVE) Laboratory Results - last 24 hr 11/05/18 11/05/18 11/05/18 14:25 14:25 14:25 WBC 5.5 RBC 5.19 Hgb 14.5 Hct 44.9 MCV 86.5 MCH 27.9 MCHC 32.3 RDW 13.6 Plt Count 327 MPV 9.9 Neut % (Auto) 48.2 L Lymph % (Auto) 37.1 H Cascade % (Auto) 11.4 H Eos % (Auto) 2.9 Baso % (Auto) 0.4 Lymph # (Auto) 2.1 C[place] # (Auto) 0.6 Eos # (Auto) 0.2 Baso # (Auto) 0.02 Absolute Neuts (auto) 2.67 PT 13.7 H INR 1.23 APTT 44.8 H Sodium 141 Potassium 3.9 Chloride 101 Carbon Dioxide 30 Anion Gap 14 BUN 16 Creatinine 0.8 Est GFR ( Amer) > 60 Est GFR (Non-Af Amer) > 60 POC Glucose (mg/dL) Random Glucose 149 H Calcium 9.8 Magnesium 1.8 Total Bilirubin 0.4 AST 22 ALT 18 Alkaline Phosphatase 68 Lactate Dehydrogenase Total Creatine Kinase Troponin I < 0.01 Total Protein 8.1 Albumin 4.2 Globulin 3.9 Albumin/Globulin Ratio 1.1 Triglycerides Cholesterol LDL Cholesterol Direct HDL Cholesterol Free T4 TSH 3rd Generation Urine Opiates Screen Urine Methadone Screen Ur Barbiturates Screen Ur Phencyclidine Scrn Ur Amphetamines Screen U Benzodiazepines Scrn U Oth Cocaine Metabols U Cannabinoids Screen 11/05/18 11/05/18 11/05/18 14:25 14:30 14:45 WBC RBC Hgb Hct MCV MCH MCHC RDW Plt Count MPV Neut % (Auto) Lymph % (Auto) Cascade % (Auto) Eos % (Auto) Baso % (Auto) Lymph # (Auto) [place] # (Auto) Eos # (Auto) Baso # (Auto) Absolute Neuts (auto) PT INR APTT Sodium Potassium Chloride Carbon Dioxide Anion Gap BUN Creatinine Est GFR ( Amer) Est GFR (Non-Af Amer) POC Glucose (mg/dL) Random Glucose Calcium Magnesium Total Bilirubin AST ALT Alkaline Phosphatase Lactate Dehydrogenase Total Creatine Kinase Troponin I Total Protein Albumin Globulin Albumin/Globulin Ratio Triglycerides 50 Cholesterol 143 LDL Cholesterol Direct 108 HDL Cholesterol 21 L Free T4 1.00 TSH 3rd Generation 3.81 Urine Opiates Screen Urine Methadone Screen Ur Barbiturates Screen Ur Phencyclidine Scrn Ur Amphetamines Screen U Benzodiazepines Scrn U Oth Cocaine Metabols U Cannabinoids Screen 11/05/18 11/05/18 11/05/18 16:33 21:00 23:02 WBC RBC Hgb Hct MCV MCH MCHC RDW Plt Count MPV Neut % (Auto) Lymph % (Auto) Cascade % (Auto) Eos % (Auto) Baso % (Auto) Lymph # (Auto) [place] # (Auto) Eos # (Auto) Baso # (Auto) Absolute Neuts (auto) PT INR APTT Sodium Potassium Chloride Carbon Dioxide Anion Gap BUN Creatinine Est GFR ( Amer) Est GFR (Non-Af Amer) POC Glucose (mg/dL) 149 H Random Glucose Calcium Magnesium Total Bilirubin AST ALT Alkaline Phosphatase Lactate Dehydrogenase 294 L Total Creatine Kinase 178 Troponin I < 0.01 Total Protein Albumin Globulin Albumin/Globulin Ratio Triglycerides Cholesterol LDL Cholesterol Direct HDL Cholesterol Free T4 TSH 3rd Generation Urine Opiates Screen Negative Urine Methadone Screen Negative Ur Barbiturates Screen Negative Ur Phencyclidine Scrn Negative Ur Amphetamines Screen Negative U Benzodiazepines Scrn Negative U Oth Cocaine Metabols Negative U Cannabinoids Screen Negative 11/06/18 11/06/18 11/06/18 05:30 05:30 08:23 WBC 6.6 RBC 5.35 Hgb 15.0 Hct 46.3 MCV 86.5 MCH 28.0 MCHC 32.4 RDW 13.8 Plt Count 346 MPV 10.1 Neut % (Auto) 50.1 Lymph % (Auto) 35.9 H [place] % (Auto) 11.1 H Eos % (Auto) 2.6 Baso % (Auto) 0.3 Lymph # (Auto) 2.4 [place] # (Auto) 0.7 H Eos # (Auto) 0.2 Baso # (Auto) 0.02 Absolute Neuts (auto) 3.30 PT INR APTT Sodium 139 Potassium 4.0 Chloride 100 Carbon Dioxide 29 Anion Gap 14 BUN 16 Creatinine 0.9 Est GFR ( Amer) > 60 Est GFR (Non-Af Amer) > 60 POC Glucose (mg/dL) 157 H Random Glucose 165 H Calcium 9.5 Magnesium 2.1 Total Bilirubin AST ALT Alkaline Phosphatase Lactate Dehydrogenase 375 Total Creatine Kinase 149 Troponin I < 0.01 Total Protein Albumin Globulin Albumin/Globulin Ratio Triglycerides Cholesterol LDL Cholesterol Direct HDL Cholesterol Free T4 TSH 3rd Generation Urine Opiates Screen Urine Methadone Screen Ur Barbiturates Screen Ur Phencyclidine Scrn Ur Amphetamines Screen U Benzodiazepines Scrn U Oth Cocaine Metabols U Cannabinoids Screen Radiology Impressions: Radiology Impressions Chest X-Ray 11/05/18 16:38 IMPRESSION: No active pulmonary disease. EKG/Cardiology Studies: Cardiology / EKG Studies 11/05/18 14:20 EKG [ELECTROCARDIOGRAM] Stat Comment: Reason For Exam: ACID REFLUX 11/05/18 17:19 EKG [ELECTROCARDIOGRAM] Stat Comment: Reason For Exam: ACID REFLUX 11/05/18 19:41 EKG [ELECTROCARDIOGRAM] Stat Comment: Reason For Exam: arrythmia 11/05/18 19:42 EKG [ELECTROCARDIOGRAM] Stat Comment: already performed Reason For Exam: arrythmia Fingerstick Blood Sugar Results: 157 Assessment/Plan - Assessment and Plan (Free Text) Assessment: Pt is a 48 yo male with a PMH of DM, HTN who presented with palpitations, likely atrial fib with aberrant conduction. Plan: Neuro - monitor mental status Cardio - HTN, DM - blood pressure well controlled - ASA, lipitor, lovenox, lopressor, amiodarone - EKG NSR, with frequent PVCs - ECHO follow up - Stress test follow up - Cardio consulted, Dr Samantha Abreu - maintain O2 >92% GI - protonix - LFTs wnl Nephro/ - monitor electrolytes - monitor Cr/ BUN Heme/Onc - Hgb 15.0 - INR 1.23 ID - no leukocytosis Endo - maintain euglycemia Dispo: transfer pt to tele Pt seen, examined, assessment and plan discussed with Dr Rafaela Mansfield PGY1 - Date & Time Date: 11/06/18 Time: 10:08 <Herbert Russo - Last Filed: 11/06/18 11:11> CCU Objective - Vital Signs / Intake & Output Vital Signs (Last 4 hours): Vital Signs Pulse BP 11/06/18 07:59 85 133/78 Intake and Output (Last 8hrs): Intake & Output 11/05/18 11/06/18 11/06/18 22:59 06:59 14:59 Output Total 800 Balance -800 Weight 16 lb 13 oz 258 lb 8 oz Output: Urine 800 Urine, Voided 800 Other: Voiding Method Urinal # Voids Urine, Voided 2 - Medications Active Medications: Active Medications Generic Name Dose Route Start Last Admin Trade Name Freq PRN Reason Stop Dose Admin Aspirin 81 mg 11/06/18 10:00 11/06/18 09:53 Ecotrin PO 81 mg DAILY YUSUF Administration Atorvastatin Calcium 40 mg 11/06/18 17:00 Lipitor PO DIN YUSUF Enoxaparin Sodium 120 mg 11/05/18 19:15 11/06/18 07:53 Lovenox SC 120 mg Q12H YUSUF Administration Protocol Insulin Human Regular 0 units 11/05/18 22:00 11/06/18 08:25 Humulin R Low SC Not Given ACHS YUSUF Protocol Metoprolol Tartrate 50 mg 11/05/18 18:00 11/06/18 07:59 Lopressor PO 50 mg 0800,1800 YUSUF Administration Metoprolol Tartrate 5 mg 11/05/18 17:46 Lopressor IVP Q4H PRN Tachycardia Pantoprazole Sodium 40 mg 11/06/18 10:00 11/06/18 09:53 Protonix Ec Tab PO 40 mg DAILY YUSUF Administration - Patient Studies Lab Studies: Lab Studies 11/06/18 11/06/18 11/06/18 Range/Units 08:23 05:30 05:30 WBC 6.6 (4.5-11.0) 10^3/uL RBC 5.35 (3.5-6.1) 10^6/uL Hgb 15.0 (14.0-18.0) g/dL Hct 46.3 (42.0-52.0) % MCV 86.5 (80.0-105.0) fl MCH 28.0 (25.0-35.0) pg MCHC 32.4 (31.0-37.0) g/dl RDW 13.8 (11.5-14.5) % Plt Count 346 (120.0-450.0) 10^3/uL MPV 10.1 (7.0-11.0) fl Neut % (Auto) 50.1 (50.0-68.0) % Lymph % (Auto) 35.9 H (22.0-35.0) % [place] % (Auto) 11.1 H (1.0-6.0) % Eos % (Auto) 2.6 (1.5-5.0) % Baso % (Auto) 0.3 (0.0-3.0) % Lymph # (Auto) 2.4 (1.2-3.4) [place] # (Auto) 0.7 H (0.1-0.6) Eos # (Auto) 0.2 (0.0-0.7) Baso # (Auto) 0.02 (0.0-2.0) K/mm3 Absolute Neuts (auto) 3.30 (1.4-6.5) PT (9.4-12.5) SECONDS INR APTT (26.9-38.3) Seconds Sodium 139 (132-148) mmol/L Potassium 4.0 (3.6-5.0) mmol/L Chloride 100 (98-107) mmol/L Carbon Dioxide 29 (21-33) mmol/L Anion Gap 14 (10-20) BUN 16 (7-21) mg/dL Creatinine 0.9 (0.8-1.5) mg/dl Est GFR ( Amer) > 60 Est GFR (Non-Af Amer) > 60 POC Glucose (mg/dL) 157 H (65-110) mg/dL Random Glucose 165 H (70-110) mg/dL Calcium 9.5 (8.4-10.5) mg/dL Magnesium 2.1 (1.7-2.2) mg/dL Total Bilirubin (0.2-1.3) mg/dL AST (17-59) U/L ALT (7-56) U/L Alkaline Phosphatase (38-126) U/L Lactate Dehydrogenase 375 (333-699) U/L Total Creatine Kinase 149 (35-230) U/L Troponin I < 0.01 ng/mL Total Protein (5.8-8.3) g/dL Albumin (3.0-4.8) g/dL Globulin gm/dL Albumin/Globulin Ratio (1.1-1.8) Triglycerides (35-160) mg/dL Cholesterol (130-200) mg/dL LDL Cholesterol Direct (0-129) mg/dL HDL Cholesterol (29-60) mg/dL Free T4 (0.78-2.19) ng/dL TSH 3rd Generation (0.46-4.68) mIU/mL Urine Opiates Screen (NEGATIVE) Urine Methadone Screen (NEGATIVE) Ur Barbiturates Screen (NEGATIVE) Ur Phencyclidine Scrn (NEGATIVE) Ur Amphetamines Screen (NEGATIVE) U Benzodiazepines Scrn (NEGATIVE) U Oth Cocaine Metabols (NEGATIVE) U Cannabinoids Screen (NEGATIVE) 11/05/18 11/05/18 11/05/18 Range/Units 23:02 21:00 16:33 WBC (4.5-11.0) 10^3/uL RBC (3.5-6.1) 10^6/uL Hgb (14.0-18.0) g/dL Hct (42.0-52.0) % MCV (80.0-105.0) fl MCH (25.0-35.0) pg MCHC (31.0-37.0) g/dl RDW (11.5-14.5) % Plt Count (120.0-450.0) 10^3/uL MPV (7.0-11.0) fl Neut % (Auto) (50.0-68.0) % Lymph % (Auto) (22.0-35.0) % [place] % (Auto) (1.0-6.0) % Eos % (Auto) (1.5-5.0) % Baso % (Auto) (0.0-3.0) % Lymph # (Auto) (1.2-3.4) [place] # (Auto) (0.1-0.6) Eos # (Auto) (0.0-0.7) Baso # (Auto) (0.0-2.0) K/mm3 Absolute Neuts (auto) (1.4-6.5) PT (9.4-12.5) SECONDS INR APTT (26.9-38.3) Seconds Sodium (132-148) mmol/L Potassium (3.6-5.0) mmol/L Chloride (98-107) mmol/L Carbon Dioxide (21-33) mmol/L Anion Gap (10-20) BUN (7-21) mg/dL Creatinine (0.8-1.5) mg/dl Est GFR ( Amer) Est GFR (Non-Af Amer) POC Glucose (mg/dL) 149 H (65-110) mg/dL Random Glucose (70-110) mg/dL Calcium (8.4-10.5) mg/dL Magnesium (1.7-2.2) mg/dL Total Bilirubin (0.2-1.3) mg/dL AST (17-59) U/L ALT (7-56) U/L Alkaline Phosphatase (38-126) U/L Lactate Dehydrogenase 294 L (333-699) U/L Total Creatine Kinase 178 (35-230) U/L Troponin I < 0.01 ng/mL Total Protein (5.8-8.3) g/dL Albumin (3.0-4.8) g/dL Globulin gm/dL Albumin/Globulin Ratio (1.1-1.8) Triglycerides (35-160) mg/dL Cholesterol (130-200) mg/dL LDL Cholesterol Direct (0-129) mg/dL HDL Cholesterol (29-60) mg/dL Free T4 (0.78-2.19) ng/dL TSH 3rd Generation (0.46-4.68) mIU/mL Urine Opiates Screen Negative (NEGATIVE) Urine Methadone Screen Negative (NEGATIVE) Ur Barbiturates Screen Negative (NEGATIVE) Ur Phencyclidine Scrn Negative (NEGATIVE) Ur Amphetamines Screen Negative (NEGATIVE) U Benzodiazepines Scrn Negative (NEGATIVE) U Oth Cocaine Metabols Negative (NEGATIVE) U Cannabinoids Screen Negative (NEGATIVE) 11/05/18 11/05/18 11/05/18 Range/Units 14:45 14:30 14:25 WBC (4.5-11.0) 10^3/uL RBC (3.5-6.1) 10^6/uL Hgb (14.0-18.0) g/dL Hct (42.0-52.0) % MCV (80.0-105.0) fl MCH (25.0-35.0) pg MCHC (31.0-37.0) g/dl RDW (11.5-14.5) % Plt Count (120.0-450.0) 10^3/uL MPV (7.0-11.0) fl Neut % (Auto) (50.0-68.0) % Lymph % (Auto) (22.0-35.0) % [place] % (Auto) (1.0-6.0) % Eos % (Auto) (1.5-5.0) % Baso % (Auto) (0.0-3.0) % Lymph # (Auto) (1.2-3.4) Cascade # (Auto) (0.1-0.6) Eos # (Auto) (0.0-0.7) Baso # (Auto) (0.0-2.0) K/mm3 Absolute Neuts (auto) (1.4-6.5) PT (9.4-12.5) SECONDS INR APTT (26.9-38.3) Seconds Sodium (132-148) mmol/L Potassium (3.6-5.0) mmol/L Chloride (98-107) mmol/L Carbon Dioxide (21-33) mmol/L Anion Gap (10-20) BUN (7-21) mg/dL Creatinine (0.8-1.5) mg/dl Est GFR ( Amer) Est GFR (Non-Af Amer) POC Glucose (mg/dL) (65-110) mg/dL Random Glucose (70-110) mg/dL Calcium (8.4-10.5) mg/dL Magnesium (1.7-2.2) mg/dL Total Bilirubin (0.2-1.3) mg/dL AST (17-59) U/L ALT (7-56) U/L Alkaline Phosphatase (38-126) U/L Lactate Dehydrogenase (333-699) U/L Total Creatine Kinase (35-230) U/L Troponin I ng/mL Total Protein (5.8-8.3) g/dL Albumin (3.0-4.8) g/dL Globulin gm/dL Albumin/Globulin Ratio (1.1-1.8) Triglycerides 50 (35-160) mg/dL Cholesterol 143 (130-200) mg/dL LDL Cholesterol Direct 108 (0-129) mg/dL HDL Cholesterol 21 L (29-60) mg/dL Free T4 1.00 (0.78-2.19) ng/dL TSH 3rd Generation 3.81 (0.46-4.68) mIU/mL Urine Opiates Screen (NEGATIVE) Urine Methadone Screen (NEGATIVE) Ur Barbiturates Screen (NEGATIVE) Ur Phencyclidine Scrn (NEGATIVE) Ur Amphetamines Screen (NEGATIVE) U Benzodiazepines Scrn (NEGATIVE) U Oth Cocaine Metabols (NEGATIVE) U Cannabinoids Screen (NEGATIVE) 11/05/18 11/05/18 11/05/18 Range/Units 14:25 14:25 14:25 WBC 5.5 (4.5-11.0) 10^3/uL RBC 5.19 (3.5-6.1) 10^6/uL Hgb 14.5 (14.0-18.0) g/dL Hct 44.9 (42.0-52.0) % MCV 86.5 (80.0-105.0) fl MCH 27.9 (25.0-35.0) pg MCHC 32.3 (31.0-37.0) g/dl RDW 13.6 (11.5-14.5) % Plt Count 327 (120.0-450.0) 10^3/uL MPV 9.9 (7.0-11.0) fl Neut % (Auto) 48.2 L (50.0-68.0) % Lymph % (Auto) 37.1 H (22.0-35.0) % Cascade % (Auto) 11.4 H (1.0-6.0) % Eos % (Auto) 2.9 (1.5-5.0) % Baso % (Auto) 0.4 (0.0-3.0) % Lymph # (Auto) 2.1 (1.2-3.4) Cascade # (Auto) 0.6 (0.1-0.6) Eos # (Auto) 0.2 (0.0-0.7) Baso # (Auto) 0.02 (0.0-2.0) K/mm3 Absolute Neuts (auto) 2.67 (1.4-6.5) PT 13.7 H (9.4-12.5) SECONDS INR 1.23 APTT 44.8 H (26.9-38.3) Seconds Sodium 141 (132-148) mmol/L Potassium 3.9 (3.6-5.0) mmol/L Chloride 101 (98-107) mmol/L Carbon Dioxide 30 (21-33) mmol/L Anion Gap 14 (10-20) BUN 16 (7-21) mg/dL Creatinine 0.8 (0.8-1.5) mg/dl Est GFR ( Amer) > 60 Est GFR (Non-Af Amer) > 60 POC Glucose (mg/dL) (65-110) mg/dL Random Glucose 149 H (70-110) mg/dL Calcium 9.8 (8.4-10.5) mg/dL Magnesium 1.8 (1.7-2.2) mg/dL Total Bilirubin 0.4 (0.2-1.3) mg/dL AST 22 (17-59) U/L ALT 18 (7-56) U/L Alkaline Phosphatase 68 (38-126) U/L Lactate Dehydrogenase (333-699) U/L Total Creatine Kinase (35-230) U/L Troponin I < 0.01 ng/mL Total Protein 8.1 (5.8-8.3) g/dL Albumin 4.2 (3.0-4.8) g/dL Globulin 3.9 gm/dL Albumin/Globulin Ratio 1.1 (1.1-1.8) Triglycerides (35-160) mg/dL Cholesterol (130-200) mg/dL LDL Cholesterol Direct (0-129) mg/dL HDL Cholesterol (29-60) mg/dL Free T4 (0.78-2.19) ng/dL TSH 3rd Generation (0.46-4.68) mIU/mL Urine Opiates Screen (NEGATIVE) Urine Methadone Screen (NEGATIVE) Ur Barbiturates Screen (NEGATIVE) Ur Phencyclidine Scrn (NEGATIVE) Ur Amphetamines Screen (NEGATIVE) U Benzodiazepines Scrn (NEGATIVE) U Oth Cocaine Metabols (NEGATIVE) U Cannabinoids Screen (NEGATIVE) Laboratory Results - last 24 hr 11/05/18 11/05/18 11/05/18 14:25 14:25 14:25 WBC 5.5 RBC 5.19 Hgb 14.5 Hct 44.9 MCV 86.5 MCH 27.9 MCHC 32.3 RDW 13.6 Plt Count 327 MPV 9.9 Neut % (Auto) 48.2 L Lymph % (Auto) 37.1 H [place] % (Auto) 11.4 H Eos % (Auto) 2.9 Baso % (Auto) 0.4 Lymph # (Auto) 2.1 [place] # (Auto) 0.6 Eos # (Auto) 0.2 Baso # (Auto) 0.02 Absolute Neuts (auto) 2.67 PT 13.7 H INR 1.23 APTT 44.8 H Sodium 141 Potassium 3.9 Chloride 101 Carbon Dioxide 30 Anion Gap 14 BUN 16 Creatinine 0.8 Est GFR ( Amer) > 60 Est GFR (Non-Af Amer) > 60 POC Glucose (mg/dL) Random Glucose 149 H Calcium 9.8 Magnesium 1.8 Total Bilirubin 0.4 AST 22 ALT 18 Alkaline Phosphatase 68 Lactate Dehydrogenase Total Creatine Kinase Troponin I < 0.01 Total Protein 8.1 Albumin 4.2 Globulin 3.9 Albumin/Globulin Ratio 1.1 Triglycerides Cholesterol LDL Cholesterol Direct HDL Cholesterol Free T4 TSH 3rd Generation Urine Opiates Screen Urine Methadone Screen Ur Barbiturates Screen Ur Phencyclidine Scrn Ur Amphetamines Screen U Benzodiazepines Scrn U Oth Cocaine Metabols U Cannabinoids Screen 11/05/18 11/05/18 11/05/18 14:25 14:30 14:45 WBC RBC Hgb Hct MCV MCH MCHC RDW Plt Count MPV Neut % (Auto) Lymph % (Auto) Cascade % (Auto) Eos % (Auto) Baso % (Auto) Lymph # (Auto) Cascade # (Auto) Eos # (Auto) Baso # (Auto) Absolute Neuts (auto) PT INR APTT Sodium Potassium Chloride Carbon Dioxide Anion Gap BUN Creatinine Est GFR ( Amer) Est GFR (Non-Af Amer) POC Glucose (mg/dL) Random Glucose Calcium Magnesium Total Bilirubin AST ALT Alkaline Phosphatase Lactate Dehydrogenase Total Creatine Kinase Troponin I Total Protein Albumin Globulin Albumin/Globulin Ratio Triglycerides 50 Cholesterol 143 LDL Cholesterol Direct 108 HDL Cholesterol 21 L Free T4 1.00 TSH 3rd Generation 3.81 Urine Opiates Screen Urine Methadone Screen Ur Barbiturates Screen Ur Phencyclidine Scrn Ur Amphetamines Screen U Benzodiazepines Scrn U Oth Cocaine Metabols U Cannabinoids Screen 11/05/18 11/05/18 11/05/18 16:33 21:00 23:02 WBC RBC Hgb Hct MCV MCH MCHC RDW Plt Count MPV Neut % (Auto) Lymph % (Auto) Cascade % (Auto) Eos % (Auto) Baso % (Auto) Lymph # (Auto) Cascade # (Auto) Eos # (Auto) Baso # (Auto) Absolute Neuts (auto) PT INR APTT Sodium Potassium Chloride Carbon Dioxide Anion Gap BUN Creatinine Est GFR ( Amer) Est GFR (Non-Af Amer) POC Glucose (mg/dL) 149 H Random Glucose Calcium Magnesium Total Bilirubin AST ALT Alkaline Phosphatase Lactate Dehydrogenase 294 L Total Creatine Kinase 178 Troponin I < 0.01 Total Protein Albumin Globulin Albumin/Globulin Ratio Triglycerides Cholesterol LDL Cholesterol Direct HDL Cholesterol Free T4 TSH 3rd Generation Urine Opiates Screen Negative Urine Methadone Screen Negative Ur Barbiturates Screen Negative Ur Phencyclidine Scrn Negative Ur Amphetamines Screen Negative U Benzodiazepines Scrn Negative U Oth Cocaine Metabols Negative U Cannabinoids Screen Negative 11/06/18 11/06/18 11/06/18 05:30 05:30 08:23 WBC 6.6 RBC 5.35 Hgb 15.0 Hct 46.3 MCV 86.5 MCH 28.0 MCHC 32.4 RDW 13.8 Plt Count 346 MPV 10.1 Neut % (Auto) 50.1 Lymph % (Auto) 35.9 H Cascade % (Auto) 11.1 H Eos % (Auto) 2.6 Baso % (Auto) 0.3 Lymph # (Auto) 2.4 Cascade # (Auto) 0.7 H Eos # (Auto) 0.2 Baso # (Auto) 0.02 Absolute Neuts (auto) 3.30 PT INR APTT Sodium 139 Potassium 4.0 Chloride 100 Carbon Dioxide 29 Anion Gap 14 BUN 16 Creatinine 0.9 Est GFR ( Amer) > 60 Est GFR (Non-Af Amer) > 60 POC Glucose (mg/dL) 157 H Random Glucose 165 H Calcium 9.5 Magnesium 2.1 Total Bilirubin AST ALT Alkaline Phosphatase Lactate Dehydrogenase 375 Total Creatine Kinase 149 Troponin I < 0.01 Total Protein Albumin Globulin Albumin/Globulin Ratio Triglycerides Cholesterol LDL Cholesterol Direct HDL Cholesterol Free T4 TSH 3rd Generation Urine Opiates Screen Urine Methadone Screen Ur Barbiturates Screen Ur Phencyclidine Scrn Ur Amphetamines Screen U Benzodiazepines Scrn U Oth Cocaine Metabols U Cannabinoids Screen Radiology Impressions: Radiology Impressions Chest X-Ray 11/05/18 16:38 IMPRESSION: No active pulmonary disease. EKG/Cardiology Studies: Cardiology / EKG Studies 11/05/18 14:20 EKG [ELECTROCARDIOGRAM] Stat Comment: Reason For Exam: ACID REFLUX 11/05/18 17:19 EKG [ELECTROCARDIOGRAM] Stat Comment: Reason For Exam: ACID REFLUX 11/05/18 19:41 EKG [ELECTROCARDIOGRAM] Stat Comment: Reason For Exam: arrythmia 11/05/18 19:42 EKG [ELECTROCARDIOGRAM] Stat Comment: already performed Reason For Exam: arrythmia Attending/Attestation - Attestation I have personally seen and examined this patient.: Yes I have fully participated in the care of the patient.: Yes I have reviewed all pertinent clinical information: Yes Notes (Text): 11/06/18 11:08 The patient was seen and examined at the bedside. Patient care was discussed with resident Medical records, lab studies were reviewed and management issues were discussed and formulated. Agree with above treatment plans as outlined in 's note with addition of the following: Pt remains hemodynamically stable in no distress, comfortable in bed at the time of exam. Denies any chest pain, palpitations at this time. Pt will not benefit from ICU level of care at this time. Please continue further management as per primary and cardiology team. Please reconsult if necessary or condition changes
--- NOTE | 2018-11-06 13:44 | CP.PCM.PN ---
<George Lee - Last Filed: 11/06/18 13:41> Subjective - Date & Time of Evaluation Date of Evaluation: 11/06/18 Time of Evaluation: 13:41 - Subjective Subjective: George Lee DO PGY1 - Internal Medicine State Auditor - Hospitalist Progress Patient was seen and examined at bedside this morning in ICU prior to echo/stress test. No chest pain, sob, lightheadedness overnight. Objective - Vital Signs/Intake and Output Vital Signs (last 24 hours): Temp Pulse Resp BP Pulse Ox 98.5 F 68 24 130/82 94 L 11/05/18 21:39 11/06/18 11:00 11/06/18 11:00 11/06/18 11:00 11/06/18 11:00 Intake and Output: 11/06/18 11/06/18 06:59 18:59 Output Total 800 Balance -800 - Medications Medications: Current Medications Amiodarone HCl (Cordarone) 400 mg PO BID [facility] Stop: 11/08/18 18:01 Amiodarone HCl (Cordarone) 200 mg PO BID [facility] Aspirin (Ecotrin) 81 mg PO DAILY [facility] Last Admin: 11/06/18 09:53 Dose: 81 mg Atorvastatin Calcium (Lipitor) 40 mg PO DIN [facility] Enoxaparin Sodium (Lovenox) 120 mg SC Q12H [facility]; Protocol Last Admin: 11/06/18 07:53 Dose: 120 mg Insulin Human Regular (Humulin R Low) 0 units SC ACHS [facility]; Protocol Last Admin: 11/06/18 08:25 Dose: Not Given Metoprolol Tartrate (Lopressor) 5 mg IVP Q4H PRN PRN Reason: Tachycardia Metoprolol Tartrate (Lopressor) 25 mg PO BID [facility] Pantoprazole Sodium (Protonix Ec Tab) 40 mg PO DAILY [facility] Last Admin: 11/06/18 09:53 Dose: 40 mg - Labs Labs: 11/06/18 05:30 11/06/18 05:30 PT 13.7 SECONDS (9.4-12.5) H 11/05/18 14:25 INR 1.23 11/05/18 14:25 APTT 44.8 Seconds (26.9-38.3) H 11/05/18 14:25 - Constitutional Appears: Well, Non-toxic, No Acute Distress - Head Exam Head Exam: ATRAUMATIC, NORMOCEPHALIC - Eye Exam Eye Exam: EOMI, Normal appearance, PERRL. absent: Scleral icterus - Respiratory Exam Respiratory Exam: Clear to Auscultation Bilateral, NORMAL BREATHING PATTERN - Cardiovascular Exam Cardiovascular Exam: Irregular Rhythm. absent: Systolic Murmur - GI/Abdominal Exam GI & Abdominal Exam: Soft. absent: Tenderness - Extremities Exam Extremities exam: Positive for: pedal pulses present. Negative for: pedal edema - Back Exam Back exam: absent: CVA tenderness (L), CVA tenderness (R) - Neurological Exam Neurological exam: Alert, CN II-XII Intact, Oriented x3 - Psychiatric Exam Psychiatric exam: Normal Affect, Normal Mood - Skin Skin Exam: Rash (R hand ) Assessment and Plan - Assessment and Plan (Free Text) Assessment: 48M PMH HTN, DM presented to [facility] [place] ED on 11/05 w/ complaints of palpitations; noted to have irregular rhythm on EKG. Admitted for management and treatment of symptomatic arrhythmia; as well as acute coronary syndrome rule out. Plan: Symptomatic Arrhythmia: Afib w/ abberant conduction as per cardiology Has been in and out of NSR w/ Wide complex tachycardia Lovenox 120mg Q12 Maintain Mag >2 // Maintain K+ >4 ECHO Results pending Stress Test Results pending Rate/Rhythm Control reccs pending cardio TSH within normal limits Cardiology Consult Stat - [facility] ACS r/o: ACS Ruled OUT Initial EKG noted to be NSR w/ frequent and consecutive PVC and fusion complexes; t wave abnormalities; No overt ST segment elevation Troponins negative Lipid panel wnl CXR no acute cardio/pulmonary process A1C - Elevated 9.5 Loaded ASA 324mg in ED Continue Lipitor 40mg Daily Continue ASA 81 QDaily Cardiology following, appreciate reccs Hx DM: ISS - Low - ACHS POC Fingerstick ACHS DVT PPX: Lovenox as above Patient was seen, examined, and discussed w/ attending Physician Dr. Moura <Ajith Moura - Last Filed: 11/06/18 14:21> Objective - Vital Signs/Intake and Output Vital Signs (last 24 hours): Temp Pulse Resp BP Pulse Ox 98.5 F 78 24 117/83 94 L 11/05/18 21:39 11/06/18 13:56 11/06/18 11:00 11/06/18 13:56 11/06/18 11:00 Intake and Output: 11/06/18 11/06/18 06:59 18:59 Output Total 800 Balance -800 - Medications Medications: Current Medications Amiodarone HCl (Cordarone) 400 mg PO BID [facility] Stop: 11/08/18 18:01 Last Admin: 11/06/18 13:56 Dose: 400 mg Amiodarone HCl (Cordarone) 200 mg PO BID [facility] Aspirin (Ecotrin) 81 mg PO DAILY [facility] Last Admin: 11/06/18 09:53 Dose: 81 mg Atorvastatin Calcium (Lipitor) 40 mg PO DIN [facility] Enoxaparin Sodium (Lovenox) 120 mg SC Q12H [facility]; Protocol Last Admin: 11/06/18 07:53 Dose: 120 mg Insulin Human Regular (Humulin R Low) 0 units SC ACHS [facility]; Protocol Last Admin: 11/06/18 13:56 Dose: Not Given Metoprolol Tartrate (Lopressor) 5 mg IVP Q4H PRN PRN Reason: Tachycardia Metoprolol Tartrate (Lopressor) 25 mg PO BID [facility] Pantoprazole Sodium (Protonix Ec Tab) 40 mg PO DAILY [facility] Last Admin: 11/06/18 09:53 Dose: 40 mg - Labs Labs: 11/06/18 05:30 11/06/18 05:30 PT 13.7 SECONDS (9.4-12.5) H 11/05/18 14:25 INR 1.23 11/05/18 14:25 APTT 44.8 Seconds (26.9-38.3) H 11/05/18 14:25 Attending/Attestation - Attestation I have personally seen and examined this patient.: Yes I have fully participated in the care of the patient.: Yes I have reviewed all pertinent clinical information, including history, physical exam and plan: Yes Notes (Text): 11/06/18 14:17 attending note; Patient seen and examined with resident in ICU. Patient is alert and awake. Denies any chest pain, shortness of breath. Complaining of occasional palpitation. Denies any nausea, vomiting. Denies any abdominal pain, fevers, chills. n.p.o. for stress test. Had episodes of multiple PVCs overnight/wide-complex tachycardia. Patient is a 48-year-old male with a past medical history of hypertension, diabetes, obesity is admitted with palpitations. 1. Palpitations; episodes of tachycardia. Started on metoprolol. Monitor heart rate closely. Cardiology evaluation appreciated. Started on subcu Lovenox treatment dose for possible A. fib and aberrant conduction. Cardiac enzymes x3 negative. N.p.o. for stress test today. Started on amiodarone. 2. Hypertension; continue metoprolol. Patient takes Narvasc and Cozaar at [facility]. 3. diabetes; continue regular insulin sliding scale. Patient is on metformin at home. Monitor closely. Case discussed with cardiology in detail. Transfer to telemetry today.
--- NOTE | 2018-11-06 16:35 | CARD ---
APPROVED REPORT Date of service: 11/06/2018 EXAM: Two-dimensional and M-mode echocardiogram with Doppler and color Doppler. INDICATION LVFX 2D DIMENSIONS Left Atrium (2D)4.0 (1.6-4.0cm)IVSd1.4 (0.7-1.1cm) LVDd5.3 (3.9-5.9cm)PWd1.4 (0.7-1.1cm) LVDs4.4 (2.5-4.0cm)FS (%) 17.6 % LVEF (%)36.4 (>50%) M-Mode DIMENSIONS Aortic Root3.20 (2.2-3.7cm)Aortic Cusp Exc.1.80 (1.5-2.0cm) Aortic Valve AoV Peak Vqutucol641.0cm/Catrachito Peak GR.4mmHg Mitral Valve MV E Ozuizuzx43.6cm/sMV A Asmmhkpi38.6cm/sE/A ratio1.1 TDI E/Lateral E'0.0E/Medial E'0.0 Tricuspid Valve TR Peak [id number]/sRAP [id number] Peak Gr.8mmHg [id number] LEFT VENTRICLE The left ventricle is normal size. There is mild concentric left ventricular hypertrophy. The systolic function is moderately to severely impaired. There is global hypokinesis of the left ventricle. Transmitral Doppler flow pattern is Grade I-abnormal relaxation pattern. No left ventricle thrombus noted on this study. RIGHT VENTRICLE The right ventricle is normal size. There is normal right ventricular wall thickness. The right ventricular systolic function is normal. ATRIA The left atrium size is normal. The right atrium size is normal. AORTIC VALVE The aortic valve is mildly thickened. No aortic regurgitation is present. There is no aortic valvular stenosis. MITRAL VALVE The mitral valve is normal in structure. There is no mitral valve regurgitation noted. There is no mitral valve stenosis. TRICUSPID VALVE The tricuspid valve is normal in structure. There is no tricuspid valve regurgitation noted. GREAT VESSELS The aortic root is normal in size. <Conclusion> The left ventricle is normal size. There is mild concentric left ventricular hypertrophy. The systolic function is moderately to severely impaired. There is global hypokinesis of the left ventricle. Transmitral Doppler flow pattern is Grade I-abnormal relaxation pattern. No left ventricle thrombus noted on this study.
--- NOTE | 2018-11-06 22:29 | CARD ---
APPROVED REPORT Date of service: 11/06/2018 Protocol: NELSON Test Type: Sestamibi Stress Test Attending Physician: Dr. Logan Singh Referring Physician: Dr. Logan Kulkarni Test Indications: Chest Pain, ARRYTHMIA Height:6 ft 0 in Weight:161lbs Medications: aspirin, lipitor, lovenox, insulin lopressor, protonix Medical History: 48 YEAR OLD MALE WITH H/O HTN, HIGH CHOLESEROL, DIABETES AND GERD Target HR: 172 bpm Resting ECG: RSR.`Non Specific ST-T Changes. Resting Heart Rate: 73 bpm Resting Blood Pressure: 140/82mmHg Submaximum (85%): 146 bpm POST EXERCISE Reason for Termination: Fatigue Target HR: No Max HR: 142 bpm 83% of Maximum Predicted HR: 172 bpm Exercise duration: 08:04 min:sec, 3 Stage Exercise capacity: 10.1METs Max Blood Pressure: 158/94mmHg Blood Pressure response to exercise: normal resting BP - appropriate response Heart Rate response to exercise: appropriate Chest Pain: No, none Angina index: 0 Arrhythmia: No, none ST Change: Yes, No Additional ST_T Changes. Deviation: 0 mm INTERPRETATION Stress EKG Conclusion: MYOVIEW NUCLEAR STRESS TEST STOPPED AFTER 8 MINUTES AND 4 SECONDS OF NELSON PROTOCOL DUE TO FATIGUE. PATIENT ACHIVED 85% OF PREDICTED HEART RATE. NO CHEST PAIN. NO ST-T CHANGES.NO ARRYTHMIA SEEN. NUCLEAR SCAN REPORT PENDING. Signed by Logan Singh Electronically Approved: 11/06/2018 13:06:07 EXAM: Myocardial Perfusion REST/STRESS Stress Test Type: Exercise Treadmill Imaging Protocol The imaging protocol used to acquire images was Rest Tc-99m/stress Tc-99m 1 day Rest Spect myocardial perfusion imaging was performed in supine position 55 minutes following the injection of 10.9 mCi of Tc-99 Myoview. At peak stress, the patient was injected intravenously with 30.9mCi of Tc-99 tetrofosmin after an exercise time of 8 minutes and 04 seconds. Gated Stress Spect was performed 65 minutes after intravenous Tc-99 Myoview injection. The images were gated to evaluate regional wall motion and calculate ventricular ejection fraction.Images were reconstructed using backfilter projection method in short horizontal and verticle long axis. Spect slices were generated. LV Perfusion The quality of the study is good. The left ventricle is moderately enlarged in size with thickened myocardium. The right ventricle is unremarkable. The lung uptake is within normal limits. The distribution of tracer reveals mildly moderately and diffusely decreased perfusion in the mid to basal infeiror wall on the stress study. The remainder of the LV myocardium is unremarkable. The rest myocardial perfusion study shows no significant change. Wall Motion Wall motion study shows diffuse hypokinesis of the left ventricle. LVEF = 36%. Conclusion 1. Abnormal SPECT myocardial perfusion study. 2. Fixed, inferior defect is most likely due to diaphragmatic attenuation. 3. Moderate LV dysfunction with diffuse hypokinesis. 4. The findings are suggestive of cardiomyopathy.
--- NOTE | 2018-11-06 22:39 | CARD ---
APPROVED REPORT Date of service: 11/05/2018 EKG Measurement Heart [id number] <Conclusion> Sinus rhythm with frequent and consecutive premature ventricular complexes and fusion complexes, paired Nonspecific T wave abnormality Abnormal ECG
--- NOTE | 2018-11-06 22:43 | PN ---
DATE: 11/06/2018 LOCATION: The patient in CCU 129, bed 4. REASON FOR CONSULTATION: Palpitation, atrial fibrillation with aberrantly conducted , hypertension, and diabetes mellitus. SUBJECTIVE: The patient was admitted with palpitations and the patient was found to have aberrantly conducted beat and there were runs of atrial fibrillation with aberrantly conducted rhythm and then the patient was going back into sinus rhythm. The patient is a known case of diabetes and hypertension. When the patient was having aberrantly conducted beat, he was funny feeling in the chest and on questioning, he agreed that this was palpitations. The patient now feeling much better. Denies any chest pain, shortness of breath, or palpitations. PHYSICAL EXAMINATION: VITAL SIGNS: Blood pressure 127/85, respirations 20, pulse 75, and temperature 97.3. HEENT: Head is normocephalic. Eyes; pupils normal. Conjunctivae normal. Nose and throat normal. NECK: JVP low. Carotid equal. THORAX: AP diameter normal. LUNGS: Clear. CARDIOVASCULAR: S1 and S2. ABDOMEN: Soft and no tenderness. No organomegaly. Bowel sounds normal. EXTREMITIES: No clubbing. No cyanosis. LABORATORY DATA: WBC 6.6, hemoglobin 15, hematocrit 46.3, and platelet 346. Sodium 139, potassium 4, BUN 16, creatinine 0.9, sugar 136, calcium 9.5, and magnesium 2.1. Troponin x2 negative. TSH 3.81. DIAGNOSES: Episodes of paroxysmal atrial fibrillation with aberrant conduction, hypertension, diabetes mellitus, hyperlipidemia, and obesity. PLAN: The patient already on metoprolol 50 b.i.d. I will give IV bolus of amiodarone this morning and the patient is scheduled for stress test and echocardiogram today. The patient also on aspirin 81 mg daily and atorvastatin 40 daily. We will cut down metoprolol to 25 b.i.d. and we will add amiodarone 400 mg p.o. b.i.d. 6 doses in the last 3 days and then 200 mg p.o. b.i.d. and we will follow today echocardiogram and nuclear stress test. We will follow with you. Logan Singh MD [facility] # [id number]
[2018-11-07] MEDS: Insulin Reg-LOW-Coverage SC SCH ×4 (08:11→21:56)
[2018-11-07] MEDS ORDERED: Iohexol 350mgl/ml 50 ML ONE (08:51)
[2018-11-07] MEDS ORDERED: Verapamil 2 ML ONE (08:51)
[2018-11-07] MEDS ORDERED: Phenylephrine 10 mg/ml Inj ONE (08:51)
[2018-11-07] MEDS ORDERED: Lidocaine PF 2% (5 ml) Inj (For Cardiac Arrhy) ONE (08:51)
[2018-11-07] MEDS ORDERED: Iodixanol 320 MG/ML 100 ML BOTTLE IV ONE (08:52)
[2018-11-07] MEDS ORDERED: Iodixanol 320 MG/ML 200 ML BOTTLE IV ONE (08:52)
[2018-11-07] MEDS ORDERED: Nitroglycerin 50mg in D5W 50 MG/250 ML BOTTLE IV ONE (08:52)
[2018-11-07] MEDS ORDERED: Midazolam 2 MG/2 ML VIAL ONE (10:57)
[2018-11-07] MEDS ORDERED: Bacitracin 500 Units/gm Oint Foilpak UD TOP ONE (11:51)
[2018-11-07] MEDS ORDERED: Sodium Chloride 0.9% 1,000 ML IV SCH (12:00)
[2018-11-07] MEDS: Pantoprazole 40 mg EC Tab PO SCH (12:44)
--- NOTE | 2018-11-07 12:50 | CPOSTOP ---
DATE: 11/07/2018 CARDIOVASCULAR LAB POST PROCEDURE NOTE PHYSICIAN: Logan Kraft MD ALL SOURCE ANALYST: Deidre Calixto, information technology technician. PROCEDURE PERFORMED: Left heart catheterization. FINDINGS: Nonobstructive coronary artery disease, cardiomyopathy, and nonischemic. FINAL DIAGNOSES: 1. Non-ischemic cardiomyopathy. 2. Nonobstructive coronary artery disease. VASCULAR ACCESS SITE: Left radial. SEDATION: Conscious sedation total 2 mg of versed, 100 of fentanyl given, periodically. Started 1 mg Versed and 50 of fentanyl. TOTAL RADIATION DOSE: 7647.7 milligray unit. TOTAL CUMULATIVE DOSE: 1043.0 milligray unit. TOTAL FLUORO TIME: 3.2 minutes. Logan Kraft MD
--- NOTE | 2018-11-07 17:40 | CP.PCM.PN ---
<George Lee - Last Filed: 11/07/18 18:15> Subjective - Date & Time of Evaluation Date of Evaluation: 11/07/18 Time of Evaluation: 09:00 - Subjective Subjective: George Lee DO PGY1 - Internal Medicine Cnc Operator Machinist - Hospitalist Progress Note Patient was seen and examined at bedside this morning; No acute events reported overnight; remained in NSR No sob, cp, abd pain, n/v/d/c, gu complaints; Will undergo cardiac cath w/ Dr. kraft this morning Objective - Vital Signs/Intake and Output Vital Signs (last 24 hours): Temp Pulse Resp BP Pulse Ox 98.8 F 66 18 125/78 97 11/07/18 17:27 11/07/18 17:27 11/07/18 17:27 11/07/18 17:27 11/07/18 06:00 Intake and Output: 11/07/18 11/07/18 06:59 18:59 Intake Total 520 Balance 520 - Medications Medications: Current Medications Aspirin (Ecotrin) 81 mg PO DAILY [facility] Last Admin: 11/07/18 12:43 Dose: Not Given Atorvastatin Calcium (Lipitor) 40 mg PO DIN [facility] Last Admin: 11/06/18 18:43 Dose: Not Given Carvedilol (Coreg) 3.125 mg PO BID [facility] Insulin Human Regular (Humulin R Low) 0 units SC [facility]; Protocol Last Admin: 11/07/18 17:21 Dose: Not Given Lisinopril (Zestril) 2.5 mg PO DAILY [facility] Metoprolol Tartrate (Lopressor) 5 mg IVP Q4H PRN PRN Reason: Tachycardia Pantoprazole Sodium (Protonix Ec Tab) 40 mg PO DAILY [facility] Last Admin: 11/07/18 12:44 Dose: Not Given - Labs Labs: 11/06/18 05:30 11/06/18 05:30 PT 13.7 SECONDS (9.4-12.5) H 11/05/18 14:25 INR 1.23 11/05/18 14:25 APTT 44.8 Seconds (26.9-38.3) H 11/05/18 14:25 - Constitutional Appears: Well, Non-toxic, No Acute Distress - Head Exam Head Exam: ATRAUMATIC, NORMOCEPHALIC - Eye Exam Eye Exam: EOMI, Normal appearance, PERRL. absent: Scleral icterus - Respiratory Exam Respiratory Exam: Clear to Auscultation Bilateral, NORMAL BREATHING PATTERN - Cardiovascular Exam Cardiovascular Exam: RRR; No murmur - GI/Abdominal Exam GI & Abdominal Exam: Soft. absent: Tenderness - Extremities Exam Extremities exam: Positive for: pedal pulses present. Negative for: pedal edema - Back Exam Back exam: absent: CVA tenderness (L), CVA tenderness (R) - Neurological Exam Neurological exam: Alert, CN II-XII Intact, Oriented x3 - Psychiatric Exam Psychiatric exam: Normal Affect, Normal Mood - Skin Skin Exam: Rash (R hand ) Assessment and Plan - Assessment and Plan (Free Text) Assessment: 48M PMH HTN, DM presented to [facility] on [place] w/ complaints of palpitations; noted to have irregular rhythm on EKG. Admitted for management and treatment of symptomatic arrhythmia; as well as acute coronary syndrome rule out. Plan: Symptomatic Arrhythmia s/p LHC on 11/07 Initial EKG noted to be NSR w/ frequent and consecutive PVC and fusion complexes; t wave abnormalities; No overt ST segment elevation NSR overnight 11/07 -Left Heart Cath: Non-ischemic cardiomyopathy Non-obstructive CAD 11/06 - Echo: EF: 36% Mild LVH; Global hypokinesis Grade 1-abnormal diastolic dysfunction 11/07 Stress Test: Mild diffuse hypokinesis of LV: Findings suggestive of cardiomyopathy Maintain Mag >2; K+ >4 DC Lovenox 120mg Q12 TSH within normal limits Cardiology Consult Stat - Singh/Swapnil Cardiomyopathy: Start Coreg 3.125 BID Start Lisinopril 2.5 Daily C/w ASA 81 QD C/w Lipitor 40 ACS r/o: ACS Ruled OUT Troponins negative No ST/T wave abnl Hx DM: ISS - Low - ACHS POC Fingerstick ACHS A1C - Elevated 9.5 DVT PPX: Lovenox as above Patient was seen, examined, and discussed w/ attending Physician Dr. Zeny Lee DO PGY1 - Internal Medicine Cnc Operator Machinist - Hospitalist Progress Note <Ajith Moura - Last Filed: 11/08/18 07:45> Objective - Vital Signs/Intake and Output Vital Signs (last 24 hours): Temp Pulse Resp BP Pulse Ox 97.9 F 72 18 124/82 100 11/08/18 06:00 11/08/18 06:00 11/08/18 06:00 11/08/18 06:00 11/08/18 06:00 Intake and Output: 11/08/18 11/08/18 06:59 18:59 Intake Total 240 Balance 240 - Medications Medications: Current Medications Aspirin (Ecotrin) 81 mg PO DAILY [facility] Last Admin: 11/07/18 12:43 Dose: Not Given Atorvastatin Calcium (Lipitor) 40 mg PO DIN [facility] Last Admin: 11/07/18 18:13 Dose: 40 mg Carvedilol (Coreg) 3.125 mg PO BID [facility] Last Admin: 11/07/18 18:13 Dose: 3.125 mg Enoxaparin Sodium (Lovenox) 40 mg SC DAILY [facility]; Protocol Insulin Human Regular (Humulin R Low) 0 units SC [facility]; Protocol Last Admin: 11/07/18 21:56 Dose: Not Given Lisinopril (Zestril) 2.5 mg PO DAILY [facility] Metoprolol Tartrate (Lopressor) 5 mg IVP Q4H PRN PRN Reason: Tachycardia Pantoprazole Sodium (Protonix Ec Tab) 40 mg PO DAILY [facility] Last Admin: 11/07/18 12:44 Dose: Not Given - Labs Labs: 11/08/18 06:30 11/08/18 06:30 PT 13.7 SECONDS (9.4-12.5) H 11/05/18 14:25 INR 1.23 11/05/18 14:25 APTT 44.8 Seconds (26.9-38.3) H 11/05/18 14:25 Attending/Attestation - Attestation I have personally seen and examined this patient.: Yes I have fully participated in the care of the patient.: Yes I have reviewed all pertinent clinical information, including history, physical exam and plan: Yes Notes (Text): 11/08/18 07:40 attending note; Patient seen and examined with resident. Patient is alert and awake. Denies any chest pain, shortness of breath. Denies any nausea, vomiting. Denies any abdominal pain, fevers, chills. N.p.o. for cardiac cath. Had episodes of multiple PVCs overnight/wide-complex tachycardia. Patient is a 48-year-old male with a past medical history of hypertension, kristina betes, obesity is admitted with palpitations. 1. Palpitations; episodes of tachycardia. Started on metoprolol and amiadarone. Currently in normal sinus rhythm. Cardiology evaluation appreciated. Started on subcu Lovenox treatment dose. Cardiac enzymes x3 negative. Stress test showed abnormal SPECT myocardial perfusion with cardiomyopathy. Patient is n.p.o. for cardiac catheter today. 2. Hypertension; continue metoprolol. Patient takes Narvasc and Cozaar at home. 3. diabetes; continue regular insulin sliding scale. Patient is on metformin at home. hold metformin. 4. Obesity; diet, exercise and weight reduction advised. 5. Cardiomyopathy; patient has ejection fraction of 35%. Needs repeat echo in 3 months. If ejection fraction does not improve might need AICD. Addendum; Cardiac cath showed normal coronaries. Patient will be monitored overnight for arrhythmias. Possible discharge home tomorrow if clinically stable. Upon discharge the patient will Follow-up with PMD DR. Christensen. Patient needs close follow-up with cardiology Dr. Kraft. Diagnosis, follow-up plan discussed with patient in detail.
--- NOTE | 2018-11-07 18:18 | CARD ---
APPROVED REPORT Date of service: 11/07/2018 Procedure(s) performed: Left Heart Catheterization HISTORY The patient is a 48 year-old male with a history of : most recent EF: 36%. (EF Method: RADIONUCLIDE), diabetes mellitus with oral treatment , hypertension . INDICATION The indication(s) include : positive stress test. CASE TECHNIQUE The patient was brought electively to the Cardiac Catheterization Laboratory in a fasting state and was prepped and draped in a sterile manner. The left wrist was infiltrated with 2% Lidocaine subcutaneous anesthesia. A 6FR GLIDES[employer]elli[employer]TH ACCESS KIT sheath was inserted into the left radial artery without difficulty. Coronary angiography was performed using coronary diagnostic catheters. The left coronary system was accessed and visualized with a Diagnostic catheter. The right coronary system was accessed and visualized with a Diagnostic catheter. The left ventricle was accessed and visualized with a 5 Fr AL 1 catheter. Left ventriculogram was performed in LOMAS projection. Closure device was deployed with a Fr TR Band (Regular) without any complications. The patient tolerated the procedure well and there were no complications associated with the procedure. Vessel Analysis The patient's coronary anatomy is right dominant. The left main coronary artery is a large size vessel without significant stenosis. The left anterior descending artery is a medium size vessel with diffuse calcification noted throughout this vessel and without significant stenosis. There is a 55-60% stenosis in the mid segment. The first diagonal branch is a medium size vessel with diffuse calcification noted throughout this vessel and without significant stenosis. The circumflex artery is a medium size vessel with diffuse calcification noted throughout this vessel and without significant stenosis. The first obtuse marginal branch is a medium size vessel with diffuse calcification noted throughout this vessel and without significant stenosis. The second obtuse marginal branch is a medium size vessel with diffuse calcification noted throughout this vessel and without significant stenosis. The ramus intermedius artery is a medium size vessel with diffuse calcification noted throughout this vessel and without significant stenosis. The right coronary artery is a medium size vessel with diffuse calcification noted throughout this vessel and without significant stenosis. There is a 30-40% stenosis in the mid segment. The right posterior descending artery is a medium size vessel with diffuse calcification noted throughout this vessel and without significant stenosis. The right posterolateral branch is a medium size vessel with diffuse calcification noted throughout this vessel and without significant stenosis. Left Ventricle The left ventricle is borderline in size with mild to moderately decreased contractility. Non-Ischemic cardiomyopathy. The left ventricular ejection fraction is estimated to be 35-40%. The left ventricular end diastolic pressure is 16 mmHg. Conclusion Non Obstructive CAD, limited to proximal to Mid 55-60% stenosis. Non ischemic CMP, EF-35-40%.EDP-16 mmof Hg Recommendations Aggressive Medical TherapyCardiac Risk Reduction Program Weight Loss Reduction Program F/u stress test in one year to monitor progression of CAD in LAD. F/u Lv Fx inb 3-6 months and if remains less than 35% ,consider AICD. Interim continue EDWARD and coreg. CC; Huseyin Trejo MD.
[2018-11-08 06:36] VITALS: RESP 18; TEMP 97.9; O2SAT 100
[2018-11-08 06:45] LABS: BASO # 0.02 K/mm3 (0.0-2.0); BASO % 0.4 % (0.0-3.0); EOS # 0.1 (0.0-0.7); HEMOGLOBIN 13.4 g/dL (14.0-18.0); LYMPH # 1.6 (1.2-3.4); LYMPH % 31.2 % (22.0-35.0); MEAN CELL VOLUME 85.9 fl (80.0-105.0); MEAN CORPUSCULAR HEMOGLOBIN 27.9 pg (25.0-35.0); MEAN CORPUSCULAR HGB CONC 32.4 g/dl (31.0-37.0); MEAN PLATELET VOLUME 9.8 fl (7.0-11.0); MONO # 0.5 (0.1-0.6); MONO % 10.1 % (1.0-6.0); RBC 4.81 10^6/uL (3.5-6.1); RED CELL DISTRIBUTION WIDTH 13.9 % (11.5-14.5)
[2018-11-08 07:17] LABS: ALB/GLOB RATIO 1.2 (1.1-1.8); ALBUMIN 3.8 g/dL (3.0-4.8); ALT/SGPT 30 U/L (7-56); AST/SGOT 29 U/L (17-59); BLOOD UREA NITROGEN 14 mg/dL (7-21); CALCIUM 8.9 mg/dL (8.4-10.5); GFR NON-AFRICAN AMERICAN > 60
[2018-11-08] MEDS: Insulin Reg-LOW-Coverage SC SCH ×2 (07:47→12:35)
[2018-11-08] MEDS: Pantoprazole 40 mg EC Tab PO SCH (10:35)
[2018-11-08] MEDS: Enoxaparin 40 mg Syringe SC SCH ×2 (10:36→10:38)
[2018-11-08 10:38] VITALS: BP 112/76; PULSE 73
--- NOTE | 2018-11-08 11:23 | CP.PCM.DIS ---
<George Lee - Last Filed: 11/08/18 16:05> Provider - Provider Date of Admission: 11/05/18 15:48 Attending physician: Ajith Moura MD Primary care physician: Huseyin Joe DO Consults: 11/05/18 15:52 Cardiology Consult Stat Comment: Consulting Provider: Logan Singh Consulting Physician: Logan Singh Reason for Consult: frequent pvc's 11/05/18 23:24 Inpatient BLAST FURNACE KEEPER Core Measures Referral Routine Comment: ventricular premature complex Physician Instructions: Reason For Exam: assess Transition In Care/Readmission Reduction Routine Comment: ventricular premature complex Physician Instructions: Reason For Exam: assess Time Spent in preparation of Discharge (in minutes): 45 Diagnosis - Discharge Diagnosis (1) Arrhythmia Status: Acute Priority: High (2) Cardiomyopathy Status: Acute Priority: High (3) Uncontrolled diabetes mellitus Status: Chronic Hospital Course - Lab Results Lab Results: Micro Results 11/05/18 21:50 Nose MRSA Culture (Admit) - Final MRSA NOT DETECTED Most Recent Lab Values WBC 5.0 10^3/uL (4.5-11.0) D 11/08/18 06:30 RBC 4.81 10^6/uL (3.5-6.1) 11/08/18 06:30 Hgb 13.4 g/dL (14.0-18.0) L 11/08/18 06:30 Hct 41.3 % (42.0-52.0) L 11/08/18 06:30 MCV 85.9 fl (80.0-105.0) 11/08/18 06:30 MCH 27.9 pg (25.0-35.0) 11/08/18 06:30 MCHC 32.4 g/dl (31.0-37.0) 11/08/18 06:30 RDW 13.9 % (11.5-14.5) 11/08/18 06:30 Plt Count 291 10^3/uL (120.0-450.0) 11/08/18 06:30 MPV 9.8 fl (7.0-11.0) 11/08/18 06:30 Neut % (Auto) 56.3 % (50.0-68.0) 11/08/18 06:30 Lymph % (Auto) 31.2 % (22.0-35.0) 11/08/18 06:30 Glynn % (Auto) 10.1 % (1.0-6.0) H 11/08/18 06:30 Eos % (Auto) 2.0 % (1.5-5.0) 11/08/18 06:30 Baso % (Auto) 0.4 % (0.0-3.0) 11/08/18 06:30 Lymph # (Auto) 1.6 (1.2-3.4) 11/08/18 06:30 Glynn # (Auto) 0.5 (0.1-0.6) 11/08/18 06:30 Eos # (Auto) 0.1 (0.0-0.7) 11/08/18 06:30 Baso # (Auto) 0.02 K/mm3 (0.0-2.0) 11/08/18 06:30 Absolute Neuts (auto) 2.84 (1.4-6.5) 11/08/18 06:30 PT 13.7 SECONDS (9.4-12.5) H 11/05/18 14:25 INR 1.23 11/05/18 14:25 APTT 44.8 Seconds (26.9-38.3) H 11/05/18 14:25 Sodium 140 mmol/L (132-148) 11/08/18 06:30 Potassium 4.2 mmol/L (3.6-5.0) 11/08/18 06:30 Chloride 105 mmol/L (98-107) 11/08/18 06:30 Carbon Dioxide 27 mmol/L (21-33) 11/08/18 06:30 Anion Gap 12 (10-20) 11/08/18 06:30 BUN 14 mg/dL (7-21) 11/08/18 06:30 Creatinine 0.8 mg/dl (0.8-1.5) 11/08/18 06:30 Est GFR ( Amer) > 60 11/08/18 06:30 Est GFR (Non-Af Amer) > 60 11/08/18 06:30 POC Glucose (mg/dL) 126 mg/dL (65-110) H 11/07/18 21:08 Random Glucose 131 mg/dL (70-110) H 11/08/18 06:30 Hemoglobin A1c 9.5 % (4.2-6.5) H D 11/06/18 05:30 Calcium 8.9 mg/dL (8.4-10.5) 11/08/18 06:30 Phosphorus 3.5 mg/dL (2.5-4.5) 11/08/18 06:30 Magnesium 2.0 mg/dL (1.7-2.2) 11/08/18 06:30 Total Bilirubin 0.3 mg/dL (0.2-1.3) 11/08/18 06:30 AST 29 U/L (17-59) 11/08/18 06:30 ALT 30 U/L (7-56) 11/08/18 06:30 Alkaline Phosphatase 62 U/L (38-126) 11/08/18 06:30 Lactate Dehydrogenase 375 U/L (333-699) 11/06/18 05:30 Total Creatine Kinase 149 U/L (35-230) 11/06/18 05:30 Troponin I < 0.01 ng/mL 11/06/18 05:30 Total Protein 7.0 g/dL (5.8-8.3) 11/08/18 06:30 Albumin 3.8 g/dL (3.0-4.8) 11/08/18 06:30 Globulin 3.1 gm/dL 11/08/18 06:30 Albumin/Globulin Ratio 1.2 (1.1-1.8) 11/08/18 06:30 Triglycerides 50 mg/dL (35-160) 11/05/18 14:30 Cholesterol 143 mg/dL (130-200) 11/05/18 14:30 LDL Cholesterol Direct 108 mg/dL (0-129) 11/05/18 14:30 HDL Cholesterol 21 mg/dL (29-60) L 11/05/18 14:30 Free T4 1.00 ng/dL (0.78-2.19) 11/05/18 14:45 TSH 3rd Generation 3.81 mIU/mL (0.46-4.68) 11/05/18 14:25 Urine Opiates Screen Negative (NEGATIVE) 11/05/18 16:33 Urine Methadone Screen Negative (NEGATIVE) 11/05/18 16:33 Ur Barbiturates Screen Negative (NEGATIVE) 11/05/18 16:33 Ur Phencyclidine Scrn Negative (NEGATIVE) 11/05/18 16:33 Ur Amphetamines Screen Negative (NEGATIVE) 11/05/18 16:33 U Benzodiazepines Scrn Negative (NEGATIVE) 11/05/18 16:33 U Oth Cocaine Metabols Negative (NEGATIVE) 11/05/18 16:33 U Cannabinoids Screen Negative (NEGATIVE) 11/05/18 16:33 - Hospital Course Hospital Course: George Lee DO PGY1 - Hospitalist DC Summary: 48M w/ PMH DM2, HTN, presenting w/ complaints of new onset palpitations. He denies any previous episodes, reported initial onset yesterday w/o associated chest pain, sob, light headedness. Palpitations have been on/off w/o no exacerbating factors, denies any worsening w/ exertion or dyspnea on exertion. At time of evaluation patient continues to complain of palpitations in ED No prior hx of cardiac issues; arrhythmias reported as per patient. EKG upon admission showed wide complex tachycardia mixed with NSR; Interpreted as Afib w/ aberrant conduction by cardiology; throughout entire hospital course patient has remained hemodynamically stable. Patient was initially started on lopressor 50mg BID and AC w/ therapeutic lovenox; rate imrpoved to NSR. He Underwent echo, NST, and LHC with results as below: 11/07 -Left Heart Cath: Non-ischemic cardiomyopathy Non-obstructive CAD No stent placement 11/06 - Echo: EF: 36% Mild LVH; Global hypokinesis Grade 1-abnormal diastolic dysfunction 11/07 Stress Test: Mild diffuse hypokinesis of LV: Findings suggestive of cardiomyopathy Prior to discharge cardiology evaluated the patient and recommended medical management and outpatient follow up. Morning prior to discharge, patient was seen and evaluated at bedside. No acute events reported overnight Patient reported no fevers, chills, shortness of breath, abd pain, n/v/d/c, urinary discomfort. No complaints of palpitations at time of discharge; no chest pain or shortness of breath reported either Discharge medications, and discharge plans were reviewed with patient Patient verbalized understanding of discharge plan as written below Patient was seen, evaluated, and discussed w/ attending physician Dr. Moura prior to discharge - Date & Time of H&P Date of H&P: 11/05/18 Time of H&P: 17:25 Discharge Exam - Head Exam Head Exam: ATRAUMATIC, NORMOCEPHALIC - Eye Exam Eye Exam: EOMI, Normal appearance, PERRL - Respiratory Exam Respiratory Exam: Clear to PA & Lateral, NORMAL BREATHING PATTERN, UNREMARKABLE - Cardiovascular Exam Cardiovascular Exam: RRR. absent: Systolic Murmur - GI/Abdominal Exam GI & Abdominal Exam: Normal Bowel Sounds, Unremarkable - Neurological Exam Neurological exam: Alert, CN II-XII Intact, Oriented x3 - Psychiatric Exam Psychiatric exam: Normal Affect, Normal Mood - Skin Skin Exam: Dry, Warm Discharge Plan - Discharge Medications Prescriptions: Aspirin [Ecotrin] 81 mg PO DAILY #30 tabec Atorvastatin [Lipitor] 40 mg PO DIN #30 tab Carvedilol [Coreg] 3.125 mg PO BID #60 tab Losartan [Cozaar] 25 mg PO DAILY #30 tab - Follow Up Plan Condition: GOOD Disposition: HOME/ ROUTINE Instructions: Coronary Heart Disease (DC), Cardiomyopathy (DC), Diabetes and Diet Additional Instructions: You were found to have an abnormal heart rhythm upon admission; You had a cardiac catheterization during this admission; no stents were placed. You were diagnosed heart failure (cardiomyopathy). Please follow up with Dr. Kraft termite renewal inspector within 3-5 days of discharge Please follow up with your primary Dr. Joe within 3-5 days of discharge DO NOT TAKE METFORMIN FOR 3 DAYS; MAY RESUME METFORMIN ON 11/11/2018 Please Refrain from using alcohol, refrain from tobacco use, Please go to the nearest emergency room if your symptoms worsen or new concerning symptoms arise Referrals: Logan Kraft MD [Staff Provider] - Huseyin Joe DO [Primary Care Provider] - <Ajith Moura - Last Filed: 11/08/18 16:59> Provider - Provider Date of Admission: 11/05/18 15:48 Attending physician: Ajith Moura MD Primary care physician: Huseyin Joe DO Consults: 11/05/18 15:52 Cardiology Consult Stat Comment: Consulting Provider: Logan Singh Consulting Physician: Logan Singh Reason for Consult: frequent pvc's 11/05/18 23:24 Inpatient BLAST FURNACE KEEPER Core Measures Referral Routine Comment: ventricular premature complex Physician Instructions: Reason For Exam: assess Transition In Care/Readmission Reduction Routine Comment: ventricular premature complex Physician Instructions: Reason For Exam: assess Hospital Course - Lab Results Lab Results: Micro Results 11/05/18 21:50 Nose MRSA Culture (Admit) - Final MRSA NOT DETECTED Most Recent Lab Values WBC 5.0 10^3/uL (4.5-11.0) D 11/08/18 06:30 RBC 4.81 10^6/uL (3.5-6.1) 11/08/18 06:30 Hgb 13.4 g/dL (14.0-18.0) L 11/08/18 06:30 Hct 41.3 % (42.0-52.0) L 11/08/18 06:30 MCV 85.9 fl (80.0-105.0) 11/08/18 06:30 MCH 27.9 pg (25.0-35.0) 11/08/18 06:30 MCHC 32.4 g/dl (31.0-37.0) 11/08/18 06:30 RDW 13.9 % (11.5-14.5) 11/08/18 06:30 Plt Count 291 10^3/uL (120.0-450.0) 11/08/18 06:30 MPV 9.8 fl (7.0-11.0) 11/08/18 06:30 Neut % (Auto) 56.3 % (50.0-68.0) 11/08/18 06:30 Lymph % (Auto) 31.2 % (22.0-35.0) 11/08/18 06:30 Glynn % (Auto) 10.1 % (1.0-6.0) H 11/08/18 06:30 Eos % (Auto) 2.0 % (1.5-5.0) 11/08/18 06:30 Baso % (Auto) 0.4 % (0.0-3.0) 11/08/18 06:30 Lymph # (Auto) 1.6 (1.2-3.4) 11/08/18 06:30 Glynn # (Auto) 0.5 (0.1-0.6) 11/08/18 06:30 Eos # (Auto) 0.1 (0.0-0.7) 11/08/18 06:30 Baso # (Auto) 0.02 K/mm3 (0.0-2.0) 11/08/18 06:30 Absolute Neuts (auto) 2.84 (1.4-6.5) 11/08/18 06:30 PT 13.7 SECONDS (9.4-12.5) H 11/05/18 14:25 INR 1.23 11/05/18 14:25 APTT 44.8 Seconds (26.9-38.3) H 11/05/18 14:25 Sodium 140 mmol/L (132-148) 11/08/18 06:30 Potassium 4.2 mmol/L (3.6-5.0) 11/08/18 06:30 Chloride 105 mmol/L (98-107) 11/08/18 06:30 Carbon Dioxide 27 mmol/L (21-33) 11/08/18 06:30 Anion Gap 12 (10-20) 11/08/18 06:30 BUN 14 mg/dL (7-21) 11/08/18 06:30 Creatinine 0.8 mg/dl (0.8-1.5) 11/08/18 06:30 Est GFR ( Amer) > 60 11/08/18 06:30 Est GFR (Non-Af Amer) > 60 11/08/18 06:30 POC Glucose (mg/dL) 126 mg/dL (65-110) H 11/07/18 21:08 Random Glucose 131 mg/dL (70-110) H 11/08/18 06:30 Hemoglobin A1c 9.5 % (4.2-6.5) H D 11/06/18 05:30 Calcium 8.9 mg/dL (8.4-10.5) 11/08/18 06:30 Phosphorus 3.5 mg/dL (2.5-4.5) 11/08/18 06:30 Magnesium 2.0 mg/dL (1.7-2.2) 11/08/18 06:30 Total Bilirubin 0.3 mg/dL (0.2-1.3) 11/08/18 06:30 AST 29 U/L (17-59) 11/08/18 06:30 ALT 30 U/L (7-56) 11/08/18 06:30 Alkaline Phosphatase 62 U/L (38-126) 11/08/18 06:30 Lactate Dehydrogenase 375 U/L (333-699) 11/06/18 05:30 Total Creatine Kinase 149 U/L (35-230) 11/06/18 05:30 Troponin I < 0.01 ng/mL 11/06/18 05:30 Total Protein 7.0 g/dL (5.8-8.3) 11/08/18 06:30 Albumin 3.8 g/dL (3.0-4.8) 11/08/18 06:30 Globulin 3.1 gm/dL 11/08/18 06:30 Albumin/Globulin Ratio 1.2 (1.1-1.8) 11/08/18 06:30 Triglycerides 50 mg/dL (35-160) 11/05/18 14:30 Cholesterol 143 mg/dL (130-200) 11/05/18 14:30 LDL Cholesterol Direct 108 mg/dL (0-129) 11/05/18 14:30 HDL Cholesterol 21 mg/dL (29-60) L 11/05/18 14:30 Free T4 1.00 ng/dL (0.78-2.19) 11/05/18 14:45 TSH 3rd Generation 3.81 mIU/mL (0.46-4.68) 11/05/18 14:25 Urine Opiates Screen Negative (NEGATIVE) 11/05/18 16:33 Urine Methadone Screen Negative (NEGATIVE) 11/05/18 16:33 Ur Barbiturates Screen Negative (NEGATIVE) 11/05/18 16:33 Ur Phencyclidine Scrn Negative (NEGATIVE) 11/05/18 16:33 Ur Amphetamines Screen Negative (NEGATIVE) 11/05/18 16:33 U Benzodiazepines Scrn Negative (NEGATIVE) 11/05/18 16:33 U Oth Cocaine Metabols Negative (NEGATIVE) 11/05/18 16:33 U Cannabinoids Screen Negative (NEGATIVE) 11/05/18 16:33 Attending/Attestation - Attestation I have personally seen and examined this patient.: Yes I have fully participated in the care of the patient.: Yes I have reviewed all pertinent clinical information, including history, physical exam and plan: Yes Notes (Text): 11/08/18 16:56 attending note; Patient seen and examined with resident. Patient is alert and awake. Denies any chest pain, shortness of breath. Status post cardiac cath yesterday. No tachycardia noted. Patient is a 48-year-old male with a past medical history of hypertension, diabetes, obesity is admitted with palpitations. 1. Palpitations; episodes of tachycardia. Resolved. Currently on aspirin, metoprolol, Cozaar, Lipitor. Currently in normal sinus rhythm. Cardiac cath showed normal coronaries. Cardiology evaluation appreciated. 2. Hypertension; pressure is controlled. 3. diabetes; continue regular insulin sliding scale. hold metformin post cardi ac cath. Restart on Sunday. 4. Obesity; diet, exercise and weight reduction advised. 5. Cardiomyopathy; patient has ejection fraction of 35%. Needs repeat echo in 3 months. If ejection fraction does not improve might need AICD. DisCharge home today. Upon discharge the patient will Follow-up with PMD DR. Christensen. Patient needs close follow-up with cardiology Dr. Kraft. Diagnosis, follow-up plan discussed with patient in detail.
--- NOTE | 2018-11-08 13:24 | PN ---
DATE: 11/08/2018 REASON FOR CONSULTATION: Follow up palpitation, cardiac evaluation, status post cardiac catheterization, nonobstructive coronary artery disease. SUBJECTIVE: The patient denies any chest pain, shortness of breath, or any palpitation. PHYSICAL EXAMINATION: As follows: GENERAL: Not in apparent distress. VITAL SIGNS: Temperature afebrile, heart rate 64, blood pressure 124/82. HEENT: PERRLA. Extraocular muscles are intact. NECK: Supple. No carotid bruits. No thyromegaly. CHEST: Clear to auscultation. HEART: S1, S2 regular. ABDOMEN: Soft. EXTREMITIES: Clubbing and cyanosis negative. LABORATORY DATA: Blood workup as follows: WBC 5, hemoglobin 13.4, hematocrit 41.3, platelet count 291. Chemistry shows sodium 140, potassium 4.2, chloride 105, carbon dioxide of 27, anion gap of 12, BUN 14, creatinine 0.8. IMPRESSION AND PLAN: This is a 48-year-old male with past medical history of hypertension, admitted with frequent premature ventricular contractions and atrial fibrillation with aberrant conduction. The patient underwent a stress test that revealed 36% ejection fraction with fixed defect. The patient underwent echocardiography that revealed ejection fraction severely decreased. The patient underwent cardiac catheterization that revealed a nonobstructive coronary artery disease only limited to proximal left anterior descending, , ejection fraction 35 to 40%, end-diastolic pressure in the range of 16. Medical treatment recommended. Emphasis is made on weight reduction, followup stress test in one year to monitor the progression of the coronary artery disease and follow up left ventricular function in 3 to 6 months. If it still remained below 35, consider automatic implantable cardioverter defibrillator. In the interim, continue angiotensin converting enzyme, angiotensin receptor blockers and Coreg. On further interrogation, the patient states that he was on 100 mg of losartan. Since the blood pressure ranges in the 100 to 120, suggested referring to start back on losartan 25 mg and discontinue lisinopril and to continue aggressive medical treatment and emphasis on weight reduction. Possible discharge home today. As mentioned, reassess left ventricular function in three to six months. If remained below 35, consider automatic implantable cardioverter-defibrillator and a stress test in one year to monitor progression of coronary artery disease and lifestyle modification with risk factor of coronary artery disease. Thank you Dr. Moura for providing us opportunity in taking care of the patient, Jose Amaya. Logan Kraft MD
== END 2018-11-08 13:09 | disposition home or self-care (01) | DRG 287 ==
LOC: ED 13:49 → OBSVTOIN 15:48 → ERH 15:48 → CCU 21:38 → 2RNO 11-06 15:17 → 2RSO 11-07 11:56
PROVIDERS: ADMIT Internal Medicine; ATTEND Internal Medicine
PROC: 4A023N7 Measurement of Cardiac Sampling and Pressure, Left Heart, Percutaneous Approach (ICD-10-PCS; principal; 2018-11-07)
PROC: B2151ZZ Fluoroscopy of Left Heart using Low Osmolar Contrast (ICD-10-PCS; 2018-11-07)
PROC: B2111ZZ Fluoroscopy of Multiple Coronary Arteries using Low Osmolar Contrast (ICD-10-PCS; 2018-11-07)
DX: I48.0 Paroxysmal atrial fibrillation (principal); I49.3 Ventricular premature depolarization; I25.10 Atherosclerotic heart disease of native coronary artery without angina pectoris; I42.9 Cardiomyopathy, unspecified; I10 Essential (primary) hypertension; K21.9 Gastro-esophageal reflux disease without esophagitis; E11.65 Type 2 diabetes mellitus with hyperglycemia; E78.5 Hyperlipidemia, unspecified; Z96.652 Presence of left artificial knee joint; E66.9 Obesity, unspecified; Z68.35 Body mass index [BMI] 35.0-35.9, adult; Z71.3 Dietary counseling and surveillance; Z79.84 Long term (current) use of oral hypoglycemic drugs; Z83.3 Family history of diabetes mellitus